=== PATIENT | female | born 1940 | race Caucasian/White ===

== ENCOUNTER → 2019-05-27 10:33 | Outpatient (CLI) | payer MEDICARE, BC, SELFPAY ==
--- NOTE | ~2019-05-27 | XR_ITS ---
EXAMINATION: XR knee RT 3V DATE: 05/27/2019 11:20 INDICATION: Right knee pain. TECHNIQUE: 3 views of right knee were obtained. COMPARISON: None. FINDINGS: Bone alignment is normal. No fracture. There is moderate osteoarthritis of medial compartme nt and mild osteoarthritis of lateral and patellofemoral compartments. No knee joint effusion. IMPRESSION: 1. Moderate right knee osteoarthritis. Reviewed, dictated and finalized at location A. PAINTER
--- NOTE | ~2019-05-27 | XR_ITS ---
XR hip RT min 3V w AP pelvis 05/27/2019 11:21 Indication: Right hip pain Procedure: AP pelvis and 3 views right hip Comparison: No prior studies for comparison. Findings: No fracture, subluxation or dislocation. Pelvic rings are intact. Mild osteoarthritis of th e hips. Sacral foramen are symmetric. Mild osteitis pubis. There is lower lumbar spondylosis. Impression: 1: Mild osteoarthritis of the hips. Reviewed, dictated and finalized at location B. NUFACTURING TECHNICIAN Impression: 1: Mild osteoarthritis of the hips.
== END ==
PROVIDERS: Visit Provider Family Medicine
DX: M16.0 Bilateral primary osteoarthritis of hip (principal); M17.11 Unilateral primary osteoarthritis, right knee
CPT/HCPCS: 73502; 73562

== ENCOUNTER 2020-07-16 13:13 | Outpatient (CLI) | payer MEDICARE, SELFPAY ==
--- NOTE | ~2020-07-16 | MR_ITS ---
EXAMINATION: MR brain/brain stem wo con DATE: 07/16/2020 14:14 INDICATION: Altered mental status, unspecified. TECHNIQUE: Magnetic resonance imaging (MRI) of the brain and brainstem was performed without intraven ous contrast. Sequences included sagittal and axial T1-weighted FSE, axial diffusion-weighted FS EPI, axial T2*-weighted GRE, axial T2-weighted FLAIR Propeller, and axial T2-weighted Propeller. Apparent diffusion coefficient (ADC) maps were created. COMPARISON: None. FINDINGS: There are scattered areas of nonspecific increased T2-weighted signal intensity in the cere bral white matter, which is within normal limits for the patient's age. There is no intracranial hemo rrhage, acute infarction, or abnormal intracranial mass lesion. The ventricles are normal in size. Th ere is mild mucosal thickening in the ethmoid sinuses. There are likely changes of ocular lens replac ement surgeries. The mastoid air cells are normal. IMPRESSION: 1. Normal brain. Reviewed, dictated and finalized at location A. TRICIAN SUPERVISOR SUBSTATION IMPRESSION: 1. Normal brain.
--- NOTE | ~2020-07-16 | US_ITS ---
EXAMINATION: US carotid duplex BI DATE: 07/16/2020 14:37 INDICATION: Occlusion and stenosis of bilateral carotid arteries. TECHNIQUE: Grayscale, color Doppler, and pulsed Doppler images of the cervical carotid arteries were obtained. The degree of vessel stenosis is placed in one of the following categories: normal, <50%, 5 0-69%, >=70% but less than near-occlusion, near-occlusion, or total occlusion. Note that percent sten osis relative to normal distal artery lumen diameter is indirectly measured from velocity measurement s as described by Stuart, et al. Radiology 2003; 229:340-346. COMPARISON: None. FINDINGS: RIGHT: The right common carotid artery (CCA) peak systolic velocity (PSV) is 58 cm/s. The right internal car otid artery (ICA) PSV is 97 cm/s. The right ICA end-diastolic velocity (EDV) is 23 cm/s. The right IC A/CCA PSV ratio is 1.7. Grayscale and color Doppler images yield an estimate of <50% diameter reducti on from plaque in the ICA. There is antegrade flow in the right vertebral artery. LEFT: The left CCA PSV is 61 cm/s. The left ICA PSV is 85 cm/s. The left ICA EDV is 27 cm/s. The left ICA/C CA PSV ratio is 1.4. Grayscale and color Doppler images yield an estimate of <50% diameter reduction from plaque in the ICA. There is antegrade flow in the left vertebral artery. IMPRESSION: 1. <50% stenosis in the right internal carotid artery. 2. <50% stenosis in the left internal carotid artery. Reviewed, dictated and finalized at location A. ER OPERATOR
== END 2020-07-16 13:14 | disposition home or self-care (01) ==
LOC: ANHIMG 13:27
PROVIDERS: PCP Family Medicine; Visit Provider Family Medicine
DX: I65.23 Occlusion and stenosis of bilateral carotid arteries (principal); R41.82 Altered mental status, unspecified
CPT/HCPCS: 70551; 93880

== ENCOUNTER 2021-07-25 15:48 | Outpatient (CLI) | payer MEDICARE, SELFPAY ==
--- NOTE | ~2021-07-25 | CT_ITS ---
EXAMINATION: CT abdomen pelvis w con DATE: 07/25/2021 16:35 INDICATION: Diverticulitis. Abdominal pain. TECHNIQUE: Computed tomography (CT) of the abdomen and pelvis was performed with 100 cc Omnipaque 350 intravenous contrast. The dose-length product was 1145.12 mGy-cm. Automated exposure control and ite rative reconstruction technique were employed. COMPARISON: None. FINDINGS: There are peripheral interstitial changes with patchy groundglass opacities in the lung bas es. There is interlobular septal thickening, consistent with chronic interstitial lung disease. Heart size normal. No significant pleural or pericardial effusion. There is mild atherosclerosis. No evide nce for aortic aneurysm. No lymphadenopathy. There is a stone in the left renal pelvis measuring 1.7 x 1.2 cm with mild hydronephrosis. There is n onobstructing right nephrolithiasis with a right extrarenal pelvis. Small fat-containing umbilical he rnia. Nonobstructive bowel gas pattern. Fatty infiltration of the liver. There are calcified granulomas of the spleen. The pancreas, adrenal glands are unremarkable. No free air or free fluid. The bladder is decompressed. Gallbladder is prese nt. Severe lumbar spondylosis. There is right renal artery stenosis. IMPRESSION: 1. Partially obstructing stone in the left renal pelvis measuring 1.7 cm maximum dimension. Mild hydr onephrosis. 2: Nonobstructing right nephrolithiasis. 3: Chronic interstitial lung disease. Reviewed, dictated and finalized at location B. IMPRESSION: 1. Partially obstructing stone in the left renal pelvis measuring 1.7 cm maximu m dimension. Mild hydronephrosis. 2: Nonobstructing right nephrolithiasis. 3: Chronic interstitial lung disease.
[2021-07-25 16:23] LABS: Estimated Glomerular Filt Rate 53
== END 2021-07-25 15:49 | disposition home or self-care (01) ==
PROVIDERS: PCP Family Medicine; Visit Provider Family Medicine
DX: R10.9 Unspecified abdominal pain (principal); N20.0 Calculus of kidney; N13.30 Unspecified hydronephrosis; J84.9 Interstitial pulmonary disease, unspecified
CPT/HCPCS: 74177; Q9967

== ENCOUNTER 2021-08-11 10:00 | Outpatient (CLI) | payer MEDICARE, SELFPAY ==
--- NOTE | 2021-08-11 10:08 | ECG_ITS ---
Measurements Intervals [place] Rate: 71 P: 44 DE: 178 QRS: 24 QRSD: 93 T: 28 QT: 368 QTc: 401 Interpretive Statements SINUS RHYTHM NORMAL ECG NO PREVIOUS ECG AVAILABLE FOR COMPARISON Electronically Signed On 08-11-2021 15:46:44 CDT by Vinh Lopez M.D.
[2021-08-11 10:48] LABS: Anion Gap 4 mmol/L (8-16); Blood Urea Nitrogen 17 mg/dL (7-17); Calcium 9.2 mg/dL (8.4-10.2); Carbon Dioxide 33 mmol/L (22-30); Chloride 101 mmol/L (98-107); Estimated Glomerular Filt Rate > 60; Glucose 109 mg/dL (65-110); Potassium 3.3 mmol/L (3.4-5.0); Sodium 138 mmol/L (137-145)
[2021-08-11 11:06] LABS: Prothrombin Time 12.9 Seconds (11.1-14.7)
[2021-08-11 11:07] LABS: Partial Thromboplastin Time 35.1 SECONDS (22.3-36.8)
== END 2021-08-11 10:01 | disposition home or self-care (01) ==
LOC: ANHSURGERY 10:04
PROVIDERS: Anesthesiology; PCP Family Medicine; Visit Provider Urology
DX: Z01.818 Encounter for other preprocedural examination (principal); I10 Essential (primary) hypertension; N20.0 Calculus of kidney
CPT/HCPCS: 36415; 80048; 85610; 85730; 87086; 87088; 93005

== ENCOUNTER → 2021-08-16 00:24 | Outpatient (CLI) | payer MEDICARE, SELFPAY ==
[2021-08-16 12:04] LABS: SARS-CoV-2 RNA PCR Negative
== END ==
PROVIDERS: PCP Family Medicine; Visit Provider Urology
DX: Z01.812 Encounter for preprocedural laboratory examination (principal); Z20.822 Contact with and (suspected) exposure to COVID-19
CPT/HCPCS: C9803; U0003; U0005

== ENCOUNTER 2021-08-19 01:15 | Day surgery (SDC) | payer MEDICARE, SELFPAY ==
--- NOTE | 2021-08-05 13:32 | PC.NURSE ---
Report to the Outpatient Waiting Room, entrance under the green pavilion located off [facility], at time __0600 on date 08/19/21 . OR Time: . - You and your visitor will be asked a series of questions to screen for COVID 19 for your protection. - A mask is required within the hospital. Preoperative COVID Testing Requirements: No COVID Test needed if: (proof is required; if not received patient will have Rapid Test prior to entry) - Patient has received COVID Vaccine at least 14 days prior to procedure date or - Patient has positive COVID test result within last 90 days of surgery date. COVID TESTING 08/16/21 @ 0915 COVID Test needed if above criteria is not met If not COVID vaccinated a COVID test must be conducted within 72 hours of surgery and patient is asked to isolate self from time of testing until procedure. You will go to the [facility] for your COVID testing. The [facility] is located at the corner of [address] [facility]. You will only be called if COVID results are positive and your surgeon may reschedule your elective surgery date. Patients may have clear liquids (water, carbonated beverages, clear teas, apple juice) until 3 hours prior to surgery with a maximum of 20 ounces. - No food from midnight until time of surgery - Infants may have breast milk until 4 hours before surgery, formula 6 hours prior to surgery. - Children will be allowed to drink immediately following surgery. If applicable, please bring a bottle or sippy cup to assist with drinking. Juice, water, soda, and popsicles are readily available. For infants on formula, please bring formula the day of surgery. Pacifiers are allowed. Take the following medications with a SIP of water the morning of surgery: ___GABAPENTIN,LEVOTHYROXINE Medications to discontinue per physician ____ASPIRIN PER DR KYLE Date to take last dose Please no make-up, nail lithuanian, hairspray, perfume, deodorant, or body powder the day of surgery. No jewelry (including any body piercings) or valuables the day of surgery, leave them at home. Please take a shower or bath the night before, or the morning of, surgery with an antibacterial soap. Wear comfortable, loose fitting clothing. Children are encouraged to wear pajamas. - Jewelry must be removed prior to entering the operating room. Rings and piercings that are not removed may be cut off. - The hospital will not accept responsibility for valuables. - Please leave all valuables, including medications, at home the day of surgery. If you are going home after surgery, a licensed mechanic driver must drive you home. - NO public transportation without another adult. - We recommend that an adult stay with you for 24 hours following discharge. - We also recommend that you do not drive, make important decision, drink alcoholic beverages, or take any drugs that were not prescribed by your health care provider for at least 24 hours after your discharge time. For Pediatric surgeries, we recommend two adults accompany the child home (only one inside the building at this time). One visitor will be allowed to accompany the patient into the hospital. Patients visitor will be instructed to remain with patient at all times or leave the building. We will allow the visitor to come back to the postoperative area when patient is ready. Follow any additional instructions given to you from your surgeon. Telephone instructions given to __PT'S STEP DAUGHTER TERRANCE and asked if any additional questions and then verbalized understanding. Patient advised to call surgeon office or pre surgery nurse liaison [phone] if any additional questions.
[2021-08-05 13:37] VITALS: BMI 45.3
[2021-08-19] VITALS (8 sets, daily range): BP systolic 103–172; BP diastolic 63–89; PULSE 64–84; RESP 12–16; TEMP 36.1–36.5; O2SAT 92–100; BMI 38.5
--- NOTE | ~2021-08-19 | XR_ITS ---
EXAMINATION: XR abdomen/kub 1V DATE: 08/19/2021 06:12 INDICATION: Kidney stone. TECHNIQUE: A supine view of the abdomen on 2 radiographs was obtained. COMPARISON: CT abdomen and pelvis 07/25/2021 FINDINGS: There are no dilated loops of bowel. There are phleboliths in the pelvis. There is a 17 mm stone in left renal pelvis. IMPRESSION: 1. 17 mm stone in left renal pelvis. Reviewed, dictated and finalized at location A.
--- NOTE | 2021-08-19 06:47 | WPDHPUPDATE1 ---
History and Physical Update Update Date/Time: 08/19/21 06:47 History and Physical has been reviewed, including an updated exam of the patient. There are NO changes in the patient's condition. Risks, benefits, and alternatives have been discussed and questions answered. Patient agrees to proceed with procedure.
--- NOTE | 2021-08-19 07:08 | WPDANESEPPF ---
Anes - Initial Pre Proc Eval Procedure: Operation Date: 08/19/21 07:30 Proposed Procedures p Left Extracorporeal Shock Wave Lithotripsy - Kenyon Ni MD s Cystoscopy with Left Stent Placement - Kenyon Ni MD Date/Time: 08/19/21 07:08 Surgeon: Kenyon Ni MD Pre Op Diagnosis: Left Renal Kidney Stones Patient Data Age: 80 Gender: F Height: 1.55 m Weight: 92.5 kg Last Vital Signs Temp 36.5 C 08/19/21 06:38 Pulse 64 08/19/21 06:38 Resp 14 08/19/21 06:38 BP 149/63 H 08/19/21 06:38 Pulse Ox 99 08/19/21 06:38 Allergies Allergy/AdvReac Type Severity Reaction Status Date / Time Sulfa (Sulfonamide AdvReac Mild hives Verified 08/19/21 07:09 Antibiotics) Home Medications Medication Instructions Recorded Confirmed Type aspirin 81 mg tablet,delayed 81 mg PO DAILY 03/24/19 08/05/21 History release fluticasone propionate 50 1 spray NASAL BID ml 05/26/19 08/05/21 History mcg/actuation nasal spray,suspension gabapentin 100 mg capsule 200 mg PO TID #180 cap 09/01/20 08/05/21 Rx atorvastatin 20 mg tablet 20 mg PO DAILY #30 tablet 10/06/20 08/05/21 Rx furosemide 20 mg tablet 20 mg PO QAM PRN #30 tablet 11/04/20 08/05/21 Rx hydrochlorothiazide 12.5 mg capsule 12.5 mg PO DAILY #30 cap 11/04/20 08/05/21 Rx omeprazole 20 mg capsule,delayed 20 mg PO DAILY #30 cap 11/04/20 08/05/21 Rx release potassium chloride 10 mEq 10 meq PO DAILY PRN #30 cap 11/22/20 08/05/21 Rx capsule,extended release lisinopril 20 mg tablet 20 mg PO DAILY #30 tablet 12/07/20 08/05/21 Rx tramadol 50 mg tablet 50 mg PO Q6H PRN #60 tablet 05/09/21 08/05/21 Rx levothyroxine 75 mcg tablet 75 mcg PO DAILY #90 tablet 06/08/21 08/05/21 Rx Patient hx anesthesia problems: none Family hx anesthesia problems: none Results Review: All pre-operative results and documents have been reviewed as part of the pre-operative evaluation. [facility] Past Medical History Medical History (Updated 07/26/21 @ 12:57 by Cisco Guzman MD) Abdominal pain (~07/20/21) CT of the abdomen and pelvis on 07/25/2021 revealed fatty liver with chronic interstitial lung changes and stone in the left renal pelvis with hydronephrosis and severe lumbar spondylosis. Renal artery stenosis on the right noted. Abnormal fasting glucose Acute non-recurrent maxillary sinusitis Altered mental status MRI of the brain and carotid Doppler study negative on 07/16/2020 Anemia At high risk for falls Body mass index (BMI) 40.0-44.9, adult (01/27/19) Chronic bilateral low back pain with right-sided sciatica Chronic kidney disease (CKD) stage G3b/A1, moderately decreased glomerular filtration rate (GFR) between 30-44 mL/min/1.73 square meter and albuminuria creatinine ratio less than 30 mg/g Chronic nonallergic rhinitis Chronic pain of right knee Chronic right hip pain Confusion Edema, peripheral Essential (primary) hypertension Gastroenteritis GERD (gastroesophageal reflux disease) Hypothyroidism, unspecified Hypothyroidism, unspecified Mixed hyperlipidemia Mixed irritable bowel syndrome Renal calculus, bilateral partially obstructing 1.7 cm stone in the left renal pelvis with mild hydronephrosis on CT 07/25/2021 Right renal artery stenosis (~07/25/21) renal artery stenosis on the right noted on CT of the abdomen and pelvis on 07/25/2021 UTI (urinary tract infection) Social History Social History (Updated 06/06/21 @ 08:28 by Phuong Mann MA) Smoking status: Never smoker Alcohol intake: never Substance use: never Substance use type: does not use Living arrangements: alone Spiritual care concerns: No Anes - Eval Final PreProcedure Day of Procedure 08/19/21 07:08 Patient weight: obese Heart: regular rate and rhythm Lungs: clear to auscultation and normal air movement Airway: Mallampati scale class II Neurological: alert and oriented Last oral intake: >/= 8 hours ASA classification: III Emergent: no Anesthetic
[2021-08-19] MEDS: ceFAZolin 2 GM/D5W 50 ML 2 GM/50 ML BAG IVPB (07:24)
[2021-08-19] MEDS: LACTATED RINGERS 1,000 ML 30 ML IV CONT (07:30)
--- NOTE | 2021-08-19 08:04 | P.OP_ITS ---
Procedure Note - Detailed Date of Procedure 08/19/21 Pre-op Diagnosis Left Renal Kidney Stones Post-op Diagnosis Same Procedure Performed Cystoscopy, left ureteral stent placement and left ESWL Surgeon Kenyon Ni MD Anesthesia General Description of Procedure The patient was brought to the operative suite where she was placed in the frog- legged position on the Dornier lithotripter table. Flexible cystoscopy was undertaken with a 16F flexible cystoscopy. Her urethra and bladder neck were endoscopically normal. The bladder mucosa was normal and there was a single, orthotopic ureteral orifice bilaterally. A 0.035 glidewire was advanced into the left renal pelvis under fluoroscopy. A 4.8F J-J ureteral stent was positioned with the proximal coil in the renal pelvis and the distal coil in the bladder. The patient was then repositioned in the supine position and the focal point of the lithotriptor was placed at a 2cm left renal calculus. A total of 2500 shocks were delivered at a power setting of 7. There appeared to be good fragmentation of the stone. The patient tolerated the procedure well and was taken to the recovery room in good condition. Drains Yes Packing No Pathology None sent Condition Stable Disposition PACU
[2021-08-19] MEDS: fentaNYL CITRATE INJ (*CRX) 100 MCG/2 ML VIAL 25 MCG IV PUSH ×4 (09:06→09:24)
[2021-08-19] MEDS: oxyCODONE HCL (*CRX) 5 MG TAB IR PO (10:04)
== END 2021-08-19 10:52 | disposition home or self-care (01) ==
PROVIDERS: PCP Family Medicine; Visit Provider Urology
PROC: (CPT 50590; principal; 2021-08-19 07:30)
PROC: (CPT 52352; 2021-08-19 07:30)
DX: N20.0 Calculus of kidney (principal); I12.9 Hypertensive chronic kidney disease with stage 1 through stage 4 chronic kidney disease, or unspecified chronic kidney disease; N18.32 Chronic kidney disease, stage 3b; D64.9 Anemia, unspecified; K21.9 Gastro-esophageal reflux disease without esophagitis; E03.9 Hypothyroidism, unspecified; E78.2 Mixed hyperlipidemia; K58.2 Mixed irritable bowel syndrome; E66.9 Obesity, unspecified; Z68.38 Body mass index [BMI] 38.0-38.9, adult
CPT/HCPCS: 52332; 50590; 74018; A9270; C1769; C2617; J0690; J1100; J2405; J2704; J3010; J7030; J7120

== ENCOUNTER → 2021-08-29 01:30 | Outpatient (CLI) | payer MEDICARE, SELFPAY ==
[2021-08-29 12:11] LABS: SARS-CoV-2 RNA PCR Negative
== END ==
PROVIDERS: PCP Family Medicine; Visit Provider Internal Medicine Gastroenterology
DX: Z01.812 Encounter for preprocedural laboratory examination (principal); Z20.822 Contact with and (suspected) exposure to COVID-19
CPT/HCPCS: C9803; U0003; U0005

== ENCOUNTER 2021-09-01 00:05 | Day surgery (SDC) | payer MEDICARE, SELFPAY ==
[2021-08-19 09:15] VITALS: BMI 45.3
--- NOTE | 2021-08-31 11:16 | WPDANESEPPF ---
Anes - Initial Pre Proc Eval Procedure: Operation Date: 09/01/21 08:30 Proposed Procedures p Colonoscopy - William Pennington MD Date/Time: 08/31/21 11:16 Surgeon: William Pennington MD Pre Op Diagnosis: colitis Patient Data Age: 81 Gender: F Height: 1.55 m Weight: 108.9 kg Allergies Allergy/AdvReac Type Severity Reaction Status Date / Time Sulfa (Sulfonamide AdvReac Mild hives Verified 09/01/21 07:33 Antibiotics) Home Medications Medication Instructions Recorded Confirmed Type aspirin 81 mg tablet,delayed 81 mg PO DAILY 03/24/19 08/19/21 History release fluticasone propionate 50 1 spray NASAL BID ml 05/26/19 08/19/21 History mcg/actuation nasal spray,suspension gabapentin 100 mg capsule 200 mg PO TID #180 cap 09/01/20 08/19/21 Rx atorvastatin 20 mg tablet 20 mg PO DAILY #30 tablet 10/06/20 08/19/21 Rx furosemide 20 mg tablet 20 mg PO QAM PRN #30 tablet 11/04/20 08/19/21 Rx hydrochlorothiazide 12.5 mg capsule 12.5 mg PO DAILY #30 cap 11/04/20 08/19/21 Rx omeprazole 20 mg capsule,delayed 20 mg PO DAILY #30 cap 11/04/20 08/19/21 Rx release potassium chloride 10 mEq 10 meq PO DAILY PRN #30 cap 11/22/20 08/19/21 Rx capsule,extended release lisinopril 20 mg tablet 20 mg PO DAILY #30 tablet 12/07/20 08/19/21 Rx duloxetine 60 mg PO DAILY 08/19/21 08/19/21 History hyoscyamine sulfate [Levsin/SL] 0.125 mg SUBLINGUAL QID PRN 08/19/21 08/19/21 History levothyroxine 50 mcg PO DAILY 08/19/21 08/19/21 History meloxicam 15 mg PO DAILY PRN 08/19/21 08/19/21 History tramadol 50 mg PO Q6H PRN 08/30/21 08/30/21 History Patient hx anesthesia problems: none Family hx anesthesia problems: none Results Review: All pre-operative results and documents have been reviewed as part of the pre-operative evaluation. [facility] Past Medical History Medical History Abdominal pain (~07/20/21) CT of the abdomen and pelvis on 07/25/2021 revealed fatty liver with chronic interstitial lung changes and stone in the left renal pelvis with hydronephrosis and severe lumbar spondylosis. Renal artery stenosis on the right noted. Abnormal fasting glucose Acute non-recurrent maxillary sinusitis Altered mental status MRI of the brain and carotid Doppler study negative on 07/16/2020 Anemia At high risk for falls Body mass index (BMI) 40.0-44.9, adult (01/27/19) Chronic bilateral low back pain with right-sided sciatica Chronic kidney disease (CKD) stage G3b/A1, moderately decreased glomerular filtration rate (GFR) between 30-44 mL/min/1.73 square meter and albuminuria creatinine ratio less than 30 mg/g Chronic nonallergic rhinitis Chronic pain of right knee Chronic right hip pain Confusion Edema, peripheral Essential (primary) hypertension Gastroenteritis GERD (gastroesophageal reflux disease) Hypothyroidism, unspecified Hypothyroidism, unspecified Mixed hyperlipidemia Mixed irritable bowel syndrome Renal calculus, bilateral partially obstructing 1.7 cm stone in the left renal pelvis with mild hydronephrosis on CT 07/25/2021 Right renal artery stenosis (~07/25/21) renal artery stenosis on the right noted on CT of the abdomen and pelvis on 07/25/2021 UTI (urinary tract infection) Surgical History Surgical History History of hysterectomy History of right-sided carotid endarterectomy Social History Social History Smoking status: Never smoker Alcohol intake: never Substance use: never Substance use type: does not use Living arrangements: alone Gender identity (if verbalized by the patient): Female Sexual Orientation (if Verbalized by the Patient): Straight or Heterosexual Spiritual care concerns: No Anes - Eval Final PreProcedure Day of Procedure 08/31/21 11:16 Patient weight: morbidly obese Heart: regular rate and rhythm Lungs: clear to ausculta
--- NOTE | 2021-09-01 07:22 | WPDGICN ---
Assessment and Plan Assessment and plan (1) Change in bowel habits: Code(s): R19.4 - Change in bowel habit Status: Acute Assessment and Plan: Colonoscopy with possible biopsy or polypectomy or cautery or injection of substances. (2) Abdominal pain: Onset Date: ~07/20/21 Code(s): R10.9 - Unspecified abdominal pain Status: Acute GI Consult Note Consult date/time: 09/01/21 07:22 HPI: Chica Cooper is a 81 year old female referred for investigation of change in bowel habits and abdominal pain. for the past few years she has had problems with constipation. now she is having alternating loose and hard stools for no apparent reason. She has not been using laxatives. She then developed abdominal pain last month, was thought to have possible diverticulitis and was treated with Cipro and Flagyl. Her symptoms however have persisted. A CT scan of the abdomen was positive for showing a kidney stone In the left renal pelvis with some hydronephrosis. and fatty liver. Review of Systems Review of Systems: All systems reviewed & are unremarkable except as noted in HPI and below PMFSH Past Medical History Medical History Abdominal pain (~07/20/21) CT of the abdomen and pelvis on 07/25/2021 revealed fatty liver with chronic interstitial lung changes and stone in the left renal pelvis with hydronephrosis and severe lumbar spondylosis. Renal artery stenosis on the right noted. Abnormal fasting glucose Acute non-recurrent maxillary sinusitis Altered mental status MRI of the brain and carotid Doppler study negative on 07/16/2020 Anemia At high risk for falls Body mass index (BMI) 40.0-44.9, adult (01/27/19) Chronic bilateral low back pain with right-sided sciatica Chronic kidney disease (CKD) stage G3b/A1, moderately decreased glomerular filtration rate (GFR) between 30-44 mL/min/1.73 square meter and albuminuria creatinine ratio less than 30 mg/g Chronic nonallergic rhinitis Chronic pain of right knee Chronic right hip pain Confusion Edema, peripheral Essential (primary) hypertension Gastroenteritis GERD (gastroesophageal reflux disease) Hypothyroidism, unspecified Hypothyroidism, unspecified Mixed hyperlipidemia Mixed irritable bowel syndrome Renal calculus, bilateral partially obstructing 1.7 cm stone in the left renal pelvis with mild hydronephrosis on CT 07/25/2021 Right renal artery stenosis (~07/25/21) renal artery stenosis on the right noted on CT of the abdomen and pelvis on 07/25/2021 UTI (urinary tract infection) Surgical History Surgical History History of hysterectomy History of right-sided carotid endarterectomy Social History Social History Smoking status: Never smoker Alcohol intake: never Substance use: never Substance use type: does not use Living arrangements: alone Gender identity (if verbalized by the patient): Female Sexual Orientation (if Verbalized by the Patient): Straight or Heterosexual Spiritual care concerns: No Meds Home Medications and Allergies Home Medications Medication Instructions Recorded Confirmed Type aspirin 81 mg tablet,delayed 81 mg PO DAILY 03/24/19 08/19/21 History release fluticasone propionate 50 1 spray NASAL BID ml 05/26/19 08/19/21 History mcg/actuation nasal spray,suspension gabapentin 100 mg capsule 200 mg PO TID #180 cap 09/01/20 08/19/21 Rx atorvastatin 20 mg tablet 20 mg PO DAILY #30 tablet 10/06/20 08/19/21 Rx furosemide 20 mg tablet 20 mg PO QAM PRN #30 tablet 11/04/20 08/19/21 Rx hydrochlorothiazide 12.5 mg capsule 12.5 mg PO DAILY #30 cap 11/04/20 08/19/21 Rx omeprazole 20 mg capsule,delayed 20 mg PO DAILY #30 cap 11/04/20 08/19/21 Rx release potassium chloride 10 mEq 10 meq PO DAILY PRN #30 cap 11/22/20 08/19/21 Rx capsule,extended
[2021-09-01 07:34] VITALS: BP 169/73; PULSE 83; RESP 17; TEMP 36.4; O2SAT 96; BMI 37.9
[2021-09-01] MEDS: LACTATED RINGERS 1,000 ML 150 ML IV CONT (07:47)
[2021-09-01 08:34] VITALS: BP 147/84; PULSE 74; RESP 20; O2SAT 97
[2021-09-01 08:44] VITALS: BP 154/86; PULSE 74; RESP 20; O2SAT 98
[2021-09-01 08:54] VITALS: BP 154/91; PULSE 79; RESP 16; O2SAT 100
== END 2021-09-01 09:21 | disposition home or self-care (01) ==
PROVIDERS: PCP Family Medicine; Visit Provider Internal Medicine Gastroenterology
PROC: 0DJD8ZZ Inspection of Lower Intestinal Tract, Via Natural or Artificial Opening Endoscopic (ICD-10-PCS; CPT 45378; principal; 2021-09-01 08:30)
DX: R19.4 Change in bowel habit (principal); D12.3 Benign neoplasm of transverse colon; I12.9 Hypertensive chronic kidney disease with stage 1 through stage 4 chronic kidney disease, or unspecified chronic kidney disease; N18.32 Chronic kidney disease, stage 3b; E03.9 Hypothyroidism, unspecified; E78.2 Mixed hyperlipidemia; K21.9 Gastro-esophageal reflux disease without esophagitis; K58.2 Mixed irritable bowel syndrome; Z79.82 Long term (current) use of aspirin; E66.01 Morbid (severe) obesity due to excess calories; Z68.37 Body mass index [BMI] 37.0-37.9, adult
CPT/HCPCS: 45385; 45381; 45380; 88305; J2704; J7120

== ENCOUNTER 2021-09-08 09:14 | Outpatient (CLI) | payer MEDICARE, SELFPAY ==
--- NOTE | ~2021-09-08 | XR_ITS ---
EXAMINATION: XR abdomen/kub 1V INDICATION: Left-sided kidney stone TECHNIQUE: Supine views of the abdomen were obtained on 2 radiographs. COMPARISON: 08/19/2021 FINDINGS: There has been interval fragmentation of the previously described left kidney stone. Innume rable small stone fragments are seen in the mid and lower left kidney. A left internal ureteral stent is in expected position. There are multiple stone fragments adjacent to the proximal aspect of the s tent. Surgical clips are noted in the right upper quadrant. There are phleboliths of the pelvis. The bowel gas pattern is normal. There are minimal airspace opacities of the visualized left lung base. IMPRESSION: 1. Interval fragmentation of the previously described left kidney stone, consistent with lithotripsy. Multiple stone fragments persist in the kidney and along a left internal ureteral stent which is in expected position. Reviewed, dictated and finalized at location F. IMPRESSION: 1. Interval fragmentation of the previously described left kidney stone, consis tent with lithotripsy. Multiple stone fragments persist in the kidney and along a left internal ureteral stent which is in expected position.
== END 2021-09-08 09:15 | disposition home or self-care (01) ==
PROVIDERS: PCP Family Medicine; Visit Provider Urology
DX: N20.0 Calculus of kidney (principal)
CPT/HCPCS: 74018

== ENCOUNTER 2021-09-23 11:29 | Outpatient (CLI) | payer MEDICARE, SELFPAY ==
--- NOTE | ~2021-09-23 | XR_ITS ---
EXAMINATION: XR abdomen/kub 1V DATE: 09/23/2021 11:58 INDICATION: Kidney stones. TECHNIQUE: A supine view of the abdomen on 2 radiographs was obtained. COMPARISON: CT abdomen and pelvis 07/25/2021, abdomen radiograph 09/08/2021 FINDINGS: There are no dilated loops of bowel. Two clips are noted in right abdomen. There is a left internal ureteral stent in expected position. There are innumerable stones in left kidney and proxima l left ureter measuring up to at least 4 mm. There are phleboliths in the pelvis. IMPRESSION: 1. Innumerable stones in left kidney and proximal left ureter with left internal ureteral stent in ex pected position. Reviewed, dictated and finalized at location A. IMPRESSION: 1. Innumerable stones in left kidney and proximal left ureter with left interna l ureteral stent in expected position.
== END 2021-09-23 11:30 | disposition home or self-care (01) ==
PROVIDERS: PCP Family Medicine; Visit Provider Urology
DX: N20.0 Calculus of kidney (principal)
CPT/HCPCS: 74018

== ENCOUNTER 2021-10-06 10:07 | Outpatient (CLI) | payer MEDICARE, SELFPAY ==
--- NOTE | ~2021-10-06 | XR_ITS ---
EXAMINATION: XR abdomen/kub 1V DATE: 10/06/2021 10:33 INDICATION: Calculus of kidney. TECHNIQUE: A supine view of the abdomen was obtained. COMPARISON: Abdomen radiographs 09/23/2021 FINDINGS: There are no dilated loops of bowel. Surgical clips overlie right abdomen. There are phlebo liths in the pelvis. There is a left internal ureteral stent in expected position. There are innumera ble stones in left kidney and proximal left ureter measuring up to at least 4 mm. IMPRESSION: 1. Innumerable stones in left kidney and proximal left ureter with left internal ureteral stent in ex pected position. Reviewed, dictated and finalized at location A. IMPRESSION: 1. Innumerable stones in left kidney and proximal left ureter with left interna l ureteral stent in expected position.
== END 2021-10-06 10:08 | disposition home or self-care (01) ==
PROVIDERS: PCP Family Medicine; Visit Provider Urology
DX: N20.1 Calculus of ureter (principal)
CPT/HCPCS: 74018

== ENCOUNTER 2021-10-11 08:45 | Outpatient (CLI) | payer MEDICARE, SELFPAY ==
[2021-10-11 09:42] LABS: Prothrombin Time 13.2 Seconds (11.1-14.7)
[2021-10-11 09:43] LABS: Partial Thromboplastin Time 34.1 SECONDS (22.3-36.8)
[2021-10-11 10:13] LABS: Anion Gap 5 mmol/L (8-16); Blood Urea Nitrogen 20 mg/dL (7-17); Calcium 9.4 mg/dL (8.4-10.2); Carbon Dioxide 29 mmol/L (22-30); Chloride 105 mmol/L (98-107); Estimated Glomerular Filt Rate 60; Glucose 114 mg/dL (65-110); Potassium 4.4 mmol/L (3.4-5.0); Sodium 139 mmol/L (137-145)
== END 2021-10-11 08:46 | disposition home or self-care (01) ==
LOC: ANHSURGERY 08:50
PROVIDERS: Anesthesiology; PCP Family Medicine; Visit Provider Urology
DX: Z01.818 Encounter for other preprocedural examination (principal); N20.0 Calculus of kidney; Z51.81 Encounter for therapeutic drug level monitoring
CPT/HCPCS: 36415; 80048; 85610; 85730; 87086; 87088

== ENCOUNTER 2021-10-14 01:10 | Day surgery (SDC) | payer MEDICARE, SELFPAY ==
[2021-10-07 15:30] VITALS: BMI 37.0
--- NOTE | 2021-10-07 15:52 | PC.NURSE ---
Report to the Outpatient Waiting Room, entrance under the green pavilion located off [facility], at time __6:30AM on date __10/14/21 . OR Time: ___8:30AM . - You and your visitor will be asked a series of questions to screen for COVID 19 for your protection. - Only one visitor is allowed at this time. - The patient visitor is requested to leave or wait in car when not with patient. - A mask is required within the hospital. Patients may have clear liquids (water, carbonated beverages, clear teas, apple juice) until 3 hours prior to surgery with a maximum of 20 ounces. - No food from midnight until time of surgery - Infants may have breast milk until 4 hours before surgery, formula 6 hours prior to surgery. - Children will be allowed to drink immediately following surgery. If applicable, please bring a bottle or sippy cup to assist with drinking. Juice, water, soda, and popsicles are readily available. For infants on formula, please bring formula the day of surgery. Pacifiers are allowed. Take the following medications with a SIP of water the morning of surgery: __DULOXETINE, GABAPENTIN, LEVOTHYROXINE Medications to discontinue per physician ___HOLD ALL VITAMINS/SUPPLEMENTS AND ASPIRIN X7 DAYS PRE-OP Date to take last dose____10/07/21 Please no make-up, nail pitcairn islander, hairspray, perfume, deodorant, or body powder the day of surgery. No jewelry (including any body piercings) or valuables the day of surgery, leave them at home. Please take a shower or bath the night before, or the morning of, surgery with an antibacterial soap. Wear comfortable, loose fitting clothing. Children are encouraged to wear pajamas. - Jewelry must be removed prior to entering the operating room. Rings and piercings that are not removed may be cut off. - The hospital will not accept responsibility for valuables. - Please leave all valuables, including medications, at home the day of surgery. If you are going home after surgery, a licensed compressed air pile driver operator must drive you home. - NO public transportation without another adult. - We recommend that an adult stay with you for 24 hours following discharge. - We also recommend that you do not drive, make important decision, drink alcoholic beverages, or take any drugs that were not prescribed by your health care provider for at least 24 hours after your discharge time. For Pediatric surgeries, we recommend two adults accompany the child home (only one inside the building at this time). Follow any additional instructions given to you from your surgeon. If you or anyone in your household have experienced Covid symptoms in the past week, please notify your surgeon or the nurse liaison at the phone number below for possible testing. Telephone instructions given to _PT'S DAUGHTER-TRERANCE___and asked if any additional questions and then verbalized understanding. Patient advised to call surgeon office or pre surgery nurse liaison [phone] if any additional questions.
--- NOTE | 2021-10-11 07:39 | PM.HPGS ---
History of Present Illness History of Present Illness Consent: Risks, benefits, and alternatives have been discussed and questions answered. Patient agrees to proceed with procedure. Chief complaint: Lt Renal Stone Narrative: Chica Cooper is a 81 year old female who is status post ESWL to a large left renal calculus in August 2021. Follow-up imaging shows grade fragmentation but significant stone fragment residual burden in the left renal pelvis and along the left proximal ureter. After discussion of options and several follow-up KUB is we have elected to proceed with repeat left ESWL. She is aware of the risk including, limited to, adverse cardiopulmonary events, renal injury with perinephric hematoma, hematuria and persistent stone fragments. Review of Systems Cardiovascular: Cardiovascular: Denies chest pain, Denies lightheadedness, Denies palpitations and Denies dyspnea Respiratory: Respiratory: Denies dyspnea Gastrointestinal: Gastrointestinal: Denies diarrhea, Denies nausea and Denies vomiting Genitourinary: Genitourinary: Denies hematuria and Denies dysuria Endocrine: Endocrine: Denies palpitations PMFSH Past Medical History Medical History Abdominal pain (~07/20/21) CT of the abdomen and pelvis on 07/25/2021 revealed fatty liver with chronic interstitial lung changes and stone in the left renal pelvis with hydronephrosis and severe lumbar spondylosis. Renal artery stenosis on the right noted. Abnormal fasting glucose Acute non-recurrent maxillary sinusitis Altered mental status MRI of the brain and carotid Doppler study negative on 07/16/2020 Anemia At high risk for falls Body mass index (BMI) 40.0-44.9, adult (01/27/19) Chronic bilateral low back pain with right-sided sciatica Chronic kidney disease (CKD) stage G3b/A1, moderately decreased glomerular filtration rate (GFR) between 30-44 mL/min/1.73 square meter and albuminuria creatinine ratio less than 30 mg/g Chronic nonallergic rhinitis Chronic pain of right knee Chronic right hip pain Confusion Edema, peripheral Essential (primary) hypertension Gastroenteritis GERD (gastroesophageal reflux disease) Hypothyroidism, unspecified Hypothyroidism, unspecified Mixed hyperlipidemia Mixed irritable bowel syndrome Polyp of colon (09/01/21) 3 polyps of the transverse colon 09/01/21 Renal calculus, bilateral partially obstructing 1.7 cm stone in the left renal pelvis with mild hydronephrosis on CT 07/25/2021 Right renal artery stenosis (~07/25/21) renal artery stenosis on the right noted on CT of the abdomen and pelvis on 07/25/2021 UTI (urinary tract infection) Surgical History Surgical History History of hysterectomy History of right-sided carotid endarterectomy Social History Social History Smoking status: Never smoker Alcohol intake: never Substance use: never Substance use type: does not use Gender identity (if verbalized by the patient): Female Sexual Orientation (if Verbalized by the Patient): Straight or Heterosexual Spiritual care concerns: No Meds Home Medications and Allergies Home Medications Medication Instructions Recorded Confirmed Type aspirin 81 mg tablet,delayed 81 mg PO DAILY 03/24/19 10/07/21 History release (Adult Aspirin Regimen) fluticasone propionate 50 1 spray intranasal BID 05/26/19 10/07/21 History mcg/actuation nasal spray,suspension (Flonase Allergy Relief) atorvastatin 20 mg tablet 20 mg PO DAILY #30 tabs 10/06/20 10/07/21 Rx furosemide 20 mg tablet 20 mg PO QAM PRN edema #30 tabs 11/04/20 10/07/21 Rx omeprazole 20 mg capsule,delayed 20 mg PO DAILY #30 caps 11/04/20 10/07/21 Rx release potassium chloride 10 mEq 10 meq PO DAILY PRN furosemide 11/22/20 10/07/21 Rx capsule,extended release #30 caps hyoscyamine sulfate
[2021-10-14] VITALS (10 sets, daily range): BP systolic 138–176; BP diastolic 69–93; PULSE 73–89; RESP 12–20; TEMP 36.4–36.7; O2SAT 96–100
--- NOTE | ~2021-10-14 | XR_ITS ---
XR abdomen/kub 1V 10/14/2021 06:52 Indication: Preop ESWL Procedure: KUB Comparison: Comparison to multiple prior studies sequentially, with oldest reviewed study dated 12/2021. Findings: Bowel gas pattern is nonobstructive. There is a left internal ureteral stent in expected lo cation. There are multiple left renal and proximal ureteral stones. Moderate-severe lumbar spondylosi s with levoscoliosis. Impression: 1: Left renal and proximal ureteral stones with left internal ureteral stent in expected position. Reviewed, dictated and finalized at location A. Impression: 1: Left renal and proximal ureteral stones with left internal ureteral stent in expected position.
--- NOTE | 2021-10-14 06:18 | WPDHPUPDATE1 ---
History and Physical Update Update Date/Time: 10/14/21 06:18 History and Physical has been reviewed, including an updated exam of the patient. There are NO changes in the patient's condition. Risks, benefits, and alternatives have been discussed and questions answered. Patient agrees to proceed with procedure.
[2021-10-14] MEDS: LACTATED RINGERS 1,000 ML 30 ML IV CONT (07:25)
--- NOTE | 2021-10-14 07:55 | WPDANESEPPF ---
Anes - Initial Pre Proc Eval Procedure: Operation Date: 10/14/21 08:30 Proposed Procedures p Repeat Left Extracorporeal Shock Wave Lithotripsy - Kenyon Ni MD Date/Time: 10/14/21 07:55 Surgeon: Kenyon Ni MD Pre Op Diagnosis: Lt Renal Stone Patient Data Age: 81 Gender: F Height: 1.6 m Weight: 95 kg Allergies Allergy/AdvReac Type Severity Reaction Status Date / Time Sulfa (Sulfonamide AdvReac Mild hives Verified 10/14/21 07:15 Antibiotics) Home Medications Medication Instructions Recorded Confirmed Type aspirin 81 mg tablet,delayed 81 mg PO DAILY 03/24/19 10/14/21 History release (Adult Aspirin Regimen) fluticasone propionate 50 1 spray intranasal BID 05/26/19 10/14/21 History mcg/actuation nasal spray,suspension (Flonase Allergy Relief) atorvastatin 20 mg tablet 20 mg PO DAILY #30 tabs 10/06/20 10/14/21 Rx furosemide 20 mg tablet 20 mg PO QAM PRN edema #30 tabs 11/04/20 10/14/21 Rx omeprazole 20 mg capsule,delayed 20 mg PO DAILY #30 caps 11/04/20 10/14/21 Rx release potassium chloride 10 mEq 10 meq PO DAILY PRN furosemide 11/22/20 10/14/21 Rx capsule,extended release #30 caps hyoscyamine sulfate 0.125 mg 0.125 mg sublingual QID PRN 08/19/21 10/14/21 History sublingual tablet (Levsin/SL) Abdominal Discomfort levothyroxine 50 mcg capsule 50 mcg PO QAM 08/19/21 10/14/21 History meloxicam 15 mg tablet 15 mg PO DAILY PRN Pain 08/19/21 10/14/21 History gabapentin 100 mg capsule 200 mg PO TID #180 caps 09/03/21 10/14/21 Rx duloxetine 60 mg capsule,delayed 60 mg PO QAM 10/07/21 10/14/21 History release hydrochlorothiazide 12.5 mg capsule 12.5 mg PO QAM 10/07/21 10/14/21 History lisinopril 20 mg tablet 20 mg PO QAM 10/07/21 10/14/21 History Patient hx anesthesia problems: none Family hx anesthesia problems: none Results Review: All pre-operative results and documents have been reviewed as part of the pre-operative evaluation. FORMERLY [facility] Past Medical History Medical History Abdominal pain (~07/20/21) CT of the abdomen and pelvis on 07/25/2021 revealed fatty liver with chronic interstitial lung changes and stone in the left renal pelvis with hydronephrosis and severe lumbar spondylosis. Renal artery stenosis on the right noted. Abnormal fasting glucose Acute non-recurrent maxillary sinusitis Altered mental status MRI of the brain and carotid Doppler study negative on 07/16/2020 Anemia At high risk for falls Body mass index (BMI) 40.0-44.9, adult (01/27/19) Chronic bilateral low back pain with right-sided sciatica Chronic kidney disease (CKD) stage G3b/A1, moderately decreased glomerular filtration rate (GFR) between 30-44 mL/min/1.73 square meter and albuminuria creatinine ratio less than 30 mg/g Chronic nonallergic rhinitis Chronic pain of right knee Chronic right hip pain Confusion Edema, peripheral Essential (primary) hypertension Gastroenteritis GERD (gastroesophageal reflux disease) Hypothyroidism, unspecified Hypothyroidism, unspecified Mixed hyperlipidemia Mixed irritable bowel syndrome Polyp of colon (09/01/21) 3 polyps of the transverse colon 09/01/21 Renal calculus, bilateral partially obstructing 1.7 cm stone in the left renal pelvis with mild hydronephrosis on CT 07/25/2021 Right renal artery stenosis (~07/25/21) renal artery stenosis on the right noted on CT of the abdomen and pelvis on 07/25/2021 UTI (urinary tract infection) Surgical History Surgical History History of hysterectomy History of right-sided carotid endarterectomy Social History Social History Smoking status: Never smoker Alcohol intake: never Substance use: never Substance use type: does not use Living arrangements: alone Gender identity (if verbalized by the patient): Female Sexual Orientatio
[2021-10-14] MEDS: KETOROLAC 30 MG/ML VIAL (*BKC) IV PUSH (08:23)
[2021-10-14] MEDS: ceFAZolin 2 GM/D5W 50 ML 2 GM/50 ML BAG IVPB (08:23)
--- NOTE | 2021-10-14 09:07 | W.PM.PROC2 ---
Procedure Note - Detailed Date of Procedure 10/14/21 Pre-op Diagnosis Lt Renal Stones Post-op Diagnosis Same Procedure Performed Left ESWL Surgeon Kenyon Ni MD Description of Procedure The patient was brought to the operative suite where he was placed in the supine position on the Dornier lithotripsy table. The focal point of the lithotripter was placed at a collection residual stone fragments in her left renal pelvis. A total of 2500 shocks were delivered at a power setting of 4. There appeared to be good fragmentation of the stone. The patient tolerated the procedure well and was taken to the recovery room in good condition. Drains No Packing No Pathology None sent Complications No immediate complications
[2021-10-14] MEDS: fentaNYL CITRATE INJ (*CRX) 100 MCG/2 ML VIAL 25 MCG IV PUSH (09:42)
[2021-10-14] MEDS: oxyCODONE HCL (*CRX) 5 MG TAB IR PO (10:12)
== END 2021-10-14 11:00 | disposition home or self-care (01) ==
PROVIDERS: PCP Family Medicine; Visit Provider Urology
PROC: (CPT 50590; principal; 2021-10-14 08:30)
DX: N20.0 Calculus of kidney (principal); Z79.82 Long term (current) use of aspirin; E03.9 Hypothyroidism, unspecified; M47.816 Spondylosis without myelopathy or radiculopathy, lumbar region; I12.9 Hypertensive chronic kidney disease with stage 1 through stage 4 chronic kidney disease, or unspecified chronic kidney disease; N18.30 Chronic kidney disease, stage 3 unspecified; E78.2 Mixed hyperlipidemia; K58.2 Mixed irritable bowel syndrome; E66.9 Obesity, unspecified; Z68.34 Body mass index [BMI] 34.0-34.9, adult
CPT/HCPCS: 50590; 74018; A9270; J0690; J1100; J1885; J2405; J2704; J3010; J7120

== ENCOUNTER 2021-10-27 09:31 | Outpatient (CLI) | payer MEDICARE, SELFPAY ==
--- NOTE | ~2021-10-27 | XR_ITS ---
EXAMINATION: XR abdomen/kub 1V DATE: 10/27/2021 09:47 INDICATION: Renal stone follow-up TECHNIQUE: A supine view of the abdomen on 2 radiographs was obtained. COMPARISON: KUB dated 10/14/[address] dated 07/25/2021 FINDINGS: Couple surgical clips related to colonic polyp resection along the proximal transverse colon project over the right upper quadrant. Left internal ureteral stent with loops formed in expected location of the bladder and an upper pole calyx of the left kidney. Interval decrease in the amount of calcific debris related to a prior left lithotripsy with subtle stippled pattern of calcification projecting h orizontally along the talus is an infundibulum in the lower left kidney, and the left renal pelvis an d along the stent in the proximal left ureter. No right-sided urolithiasis. Unchanged pattern of alejandra ral phleboliths in the pelvis. 1.6 cm round opacity projecting over the left abdomen peripheral to th e left kidney which could represent material either within the fecal stream or external to the patien t. No dilated loops of bowel to suggest obstruction. Mild lumbar levoscoliosis with severe spondylosi s. Coarse reticular pattern at the lateral lung bases, right greater than left consistent with chroni c interstitial lung disease. IMPRESSION: 1. Stippled pattern of numerous tiny stone fragments projecting along renal collecting system at the lower pole of the left kidney extending into the left renal pelvis and proximal left ureter alongside an unchanged left internal ureteral stent. Interval decrease in the stone fragment burden. Reviewed, dictated and finalized at location A. IMPRESSION: 1. Stippled pattern of numerous tiny stone fragments projecting along renal col lecting system at the lower pole of the left kidney extending into the left kristen al pelvis and proximal left ureter alongside an unchanged left internal uretera l stent. Interval decrease in the stone fragment burden.
== END 2021-10-27 09:32 | disposition home or self-care (01) ==
LOC: ANHIMG 09:34
PROVIDERS: PCP Family Medicine; Visit Provider Urology
DX: N20.0 Calculus of kidney (principal); Z96.0 Presence of urogenital implants
CPT/HCPCS: 74018

== ENCOUNTER 2021-11-16 09:04 | Outpatient (CLI) | payer MEDICARE, SELFPAY ==
--- NOTE | ~2021-11-16 | XR_ITS ---
EXAMINATION: XR abdomen/kub 1V INDICATION: Left-sided kidney stone TECHNIQUE: Supine views of the abdomen were obtained on 2 radiographs. COMPARISON: 10/27/2021 FINDINGS: A left internal ureteral stent is in expected position. There are multiple stone fragments adjacent to the proximal aspect of the stent. In addition, multiple stone fragments are seen in the l ower pole of the left kidney. There are phleboliths of the right pelvis. The bowel gas pattern is nor mal. Surgical clips in the right upper quadrant are likely from prior cholecystectomy. There is mild osteoarthritis of the hips. Moderate to severe lumbar spondylosis is noted. IMPRESSION: 1. Left internal ureteral stent in expected position with multiple stone fragments in the lower pole of the kidney and adjacent to the proximal aspect of the stent. Reviewed, dictated and finalized at location B. IMPRESSION: 1. Left internal ureteral stent in expected position with multiple stone fragme nts in the lower pole of the kidney and adjacent to the proximal aspect of the stent.
== END 2021-11-16 09:05 | disposition home or self-care (01) ==
PROVIDERS: PCP Family Medicine; Visit Provider Urology
DX: N20.0 Calculus of kidney (principal); Z96.0 Presence of urogenital implants
CPT/HCPCS: 74018

== ENCOUNTER 2021-12-19 14:31 | Outpatient (CLI) | payer MEDICARE, SELFPAY ==
--- NOTE | ~2021-12-19 | XR_ITS ---
EXAM: XR abdomen/kub 1V DATE: 12/19/2021 14:46 HISTORY: KIDNEY STONE ON LEFT SIDE . COMPARISON: None available. FINDINGS: Right upper quadrant surgical clips. Clear lung bases. Normal bowel gas pattern. No organom egaly. Left renal pelvis calcification no longer visualized. Interval left ureteral stent removal. De generative lumbar change. IMPRESSION: No radiographic evidence of urolithiasis. Reviewed, dictated and finalized at location K.
== END 2021-12-19 14:32 | disposition home or self-care (01) ==
LOC: ANHIMG 14:34
PROVIDERS: PCP Family Medicine; Visit Provider Urology
DX: N20.0 Calculus of kidney (principal)
CPT/HCPCS: 74018

== ENCOUNTER 2023-11-10 13:28 | Emergency (ER) | payer MEDICARE, SELFPAY ==
[2023-11-10] VITALS (17 sets, daily range): BP systolic 144–172; BP diastolic 64–118; PULSE 71–92; RESP 7–19; TEMP 36.9; O2SAT 95–100
--- NOTE | ~2023-11-10 | CT_ITS ---
EXAMINATION: CTA chest PE abdomen pel DATE: 11/10/2023 15:11 INDICATION: Shortness of breath. Chest pain. Generalized abdominal pain. TECHNIQUE: Computed tomography angiography (CTA) of the chest was performed with 100 mL Omnipaque-350 intravenous contrast timed to evaluate the pulmonary arteries. Coronal maximum intensity projection 3D-reconstructions were created by the technologist. Computed tomography (CT) of the abdomen and pelv is was performed with intravenous contrast. Automated exposure control and iterative reconstruction t echnique were employed. The dose-length product was 1940.87 mGy-cm. COMPARISON: CT abdomen and pelvis 07/25/2021 FINDINGS: CTA chest: There is widespread septal thickening in the lungs with a peripheral and lower lung predom inance associated with mild groundglass opacities. No bronchiectasis. No honeycombing. A calcified ri ght lung nodule and calcified right hilar lymph nodes are consistent with old granulomatous disease. No pleural effusion. The heart size is normal. No pericardial effusion. There is no pulmonary embolus . There is a small sliding hiatal hernia. There are bridging endplate osteophytes at multiple levels in the spine, consistent with diffuse idiopathic skeletal hyperostosis (DISH). CT abdomen and pelvis: The liver, gallbladder, pancreas, and adrenal glands are normal. Calcification s in the spleen are consistent with old granulomatous disease. There is mild bilateral hydronephrosis . The bladder is distended. The rectum is distended by stool. The appendix is not visualized. There i s calcified atherosclerosis of the aorta and many of the other arteries. There are no pathologically enlarged lymph nodes. There is no free intraperitoneal fluid. There is a lipoma in the right iliopsoa s muscle. There is severe lumbar spondylosis. IMPRESSION: 1. No pulmonary embolus. 2. Chronic interstitial lung disease in a pattern of nonspecific interstitial pneumonia (NSIP) versus usual interstitial pneumonia (UIP). 3. Small sliding hiatal hernia. 4. Mild bilateral hydronephrosis. Distended bladder. 5. Rectum distended by stool. Reviewed, dictated and finalized at location E. IMPRESSION: 1. No pulmonary embolus. 2. Chronic interstitial lung disease in a pattern of nonspecific interstitial p neumonia (NSIP) versus usual interstitial pneumonia (UIP). 3. Small sliding hiatal hernia. 4. Mild bilateral hydronephrosis. Distended bladder. 5. Rectum distended by stool.
--- NOTE | ~2023-11-10 | XR_ITS ---
EXAMINATION: XR chest 1V portable DATE: 11/10/2023 14:00 INDICATION: Chest pain TECHNIQUE: frontal view of the chest was obtained. COMPARISON: CT abdomen pelvis dated 07/25/2021 FINDINGS: Coarse interstitial opacities in the bilateral lower lung zones likely related to chronic interstitia l lung disease which is suggestive based on CT images from 07/25/2021. Calcified right lower lobe nodu le and calcified right hilar lymph nodes consistent with old granulomatous disease. No pleural effusi on or pneumothorax. The cardiomediastinal silhouette is normal. IMPRESSION: 1. Coarse interstitial pattern at the lower lungs which given the presence and appearance on prior CT would favor chronic interstitial lung disease over mild pulmonary edema or pneumonia.. Reviewed, dictated and finalized at location A.
--- NOTE | 2023-11-10 13:41 | ECG_ITS ---
Test Date: 2023-11-10 13:42:50 Measurements Intervals [place] Rate: 86 P: 56 WV: 169 QRS: 29 QRSD: 93 T: 48 QT: 358 QTc: 429 Interpretive Statements SINUS RHYTHM POSSIBLE LATERAL MYOCARDIAL INFARCTION , PROBABLY OLD [30 ms Q WAVE IN I/aVL/V5/V6] No previous ECG available for comparison Electronically Signed On 11-11-2023 16:09:34 CDT by Tavo Saldaña M.D.
[2023-11-10 13:50] LABS: Basophils Percent Auto 0.5 % (0.2-1.2); Eosinophils Absolute Auto 0.1 K/mm3 (0-0.3); Eosinophils Percent Auto 1.3 % (0-4.4); Hematocrit 38.7 % (37.0-47.0); Hemoglobin 12.9 g/dL (12.0-15.0); Immature Granulocyte Absolute 0.02 K/mm3 (0.00-0.031); Immature Granulocyte Percent A 0.3 % (0-0.5); Lymphocytes Percent Auto 48.9 % (18.3-44.2); Mean Corpuscular HGB Conc 33.3 g/dl (32-36); Mean Corpuscular Hemoglobin 31.7 pg (26-34); Mean Corpuscular Volume 95.1 fl (80-100); Mean Platelet Volume 9.1 fl (7.4-10.4); Monocytes Absolute Auto 0.6 K/mm3 (0.1-0.6); Monocytes Percent Auto 7.3 % (2.6-8.5); Neutrophils Absolute Auto 3.2 K/mm3 (1.3-6.7); Neutrophils Percent Auto 41.7 % (45.5-73.1); Platelet Count Result 249 k/mm3 (150-375); Red Blood Count 4.07 M/mm3 (4.2-5.4); Red Cell Distribution Width 12.9 % (11.5-14.5); White Blood Count 7.6 K/mm3 (4.5-10.0)
[2023-11-10 14:01] LABS: Alanine Aminotransferase 19 U/L (6-35); Albumin Level 4.4 g/dL (3.5-5.1); Alkaline Phosphatase 105 U/L (38-126); Anion Gap 10 mmol/L (4-12); Aspartate Amino Transferase 28 U/L (14-36); Bilirubin,Total 0.7 mg/dL (0.2-1.3); Blood Urea Nitrogen 17 mg/dL (7-17); Calcium 9.8 mg/dL (8.4-10.2); Carbon Dioxide 23 mmol/L (22-30); Chloride 106 mmol/L (98-107); Estimated CRCL calculation 52 ml/min; Estimated Glomerular Filt Rate > 60; Glucose 151 mg/dL (65-110); Lipase 86 U/L (23-300); Potassium 3.9 mmol/L (3.4-5.0); Sodium 139 mmol/L (137-145)
[2023-11-10 14:02] LABS: INR 0.9; Partial Thromboplastin Time 31.8 Seconds (22.3-36.8); Prothrombin Time 12.9 Seconds (11.1-14.7)
[2023-11-10 14:12] LABS: Troponin I < 0.012 ng/mL (0.000-0.034)
--- NOTE | 2023-11-10 14:14 | ED.CHESTPAIN ---
HPI - Chest Pain General Chief Complaint: Chest Pain Stated Complaint: sob Time Seen by Provider: 11/10/23 13:58 Source: patient Mode of arrival: ambulatory Limitations: no limitations History of Present Illness HPI narrative: Patient is an 83 y/o female who presents to the ED from home with c/o SOB. Patient reports she has not been feeling well since . She reports having increased shortness of breath, worse with exertion. She also reports having chills, intermittent anterior chest pain, and diffuse abdominal pain. She notes she has had chest pain for quite some time, but it has been more persistent since . She reports intermittent lower extremity swelling for the past 6 months which she states has improved since medication changes by PCP. She denies fevers, cough, congestion, nausea, vomiting. Denies known sick contacts. Denies previous history of coronary disease. She does not currently have a patient financial representative. Is on Lasix 20 mg daily. Related Data Home Medications Medication Instructions Recorded Confirmed fluticasone propionate 50 1 spray intranasal BID 05/26/19 02/07/23 mcg/actuation nasal spray,suspension (Flonase Allergy Relief) lysine 500 mg tablet 500 mg PO DAILY 04/03/22 02/07/23 ferrous sulfate 325 mg (65 mg 325 mg PO .qod 06/19/22 02/07/23 iron) tablet,delayed release inulin [Fiber Gummies] PO 06/19/22 02/07/23 Allergies Allergy/AdvReac Type Severity Reaction Status Date / Time Sulfa (Sulfonamide AdvReac Mild hives Verified 11/10/23 13:46 Antibiotics) Review of Systems Review of Systems: CONSTITUTIONAL: Denies fever, chills, or sweats. ENT: Denies rhinorrhea, congestion, sore throat. CARDIOVASCULAR: See HPI. RESPIRATORY: See HPI. GASTROINTESTINAL: See HPI. GENITOURINARY: Denies dysuria or hematuria. All systems reviewed & are unremarkable except as noted in HPI and below PMFSH Past Medical History Medical History Abdominal pain (~07/20/21) CT of the abdomen and pelvis on 07/25/2021 revealed fatty liver with chronic interstitial lung changes and stone in the left renal pelvis with hydronephrosis and severe lumbar spondylosis. Renal artery stenosis on the right noted. Abnormal fasting glucose Acute non-recurrent maxillary sinusitis Altered mental status MRI of the brain and carotid Doppler study negative on 07/16/2020 Anemia Hemoglobin 11.6 with iron 58 with 17% saturation and ferritin 17 with vitamin B12 greater than 2000 and folic acid 10.7 on 05/10/2022. Hemoglobin 12.1, iron 100, 29% saturation, ferritin 31 on 11/17/2022. At high risk for falls BMI 35.0-35.9,adult BMI 36.0-36.9,adult BMI 38.0-38.9,adult BMI 39.0-39.9,adult Body mass index (BMI) 40.0-44.9, adult (01/27/19) Carpal tunnel syndrome of left wrist (~04/03/22) Chronic bilateral low back pain with right-sided sciatica Chronic kidney disease (CKD) stage G3b/A1, moderately decreased glomerular filtration rate (GFR) between 30-44 mL/min/1.73 square meter and albuminuria creatinine ratio less than 30 mg/g renal function normal with BUN 15 and creatinine 0.9 with GFR 63 on 11/21/2021. BUN 34 with creatinine 1.13 with GFR 48 on 11/17/2022. BUN 21, creatinine 1.06 with GFR 52 on 02/26/2023. Chronic nonallergic rhinitis Chronic pain of right knee Chronic right hip pain Confusion Edema, peripheral Essential (primary) hypertension Fever blister Gastroenteritis GERD (gastroesophageal reflux disease) Hypersomnia Hypothyroidism, unspecified Hypothyroidism, unspecified TSH 1.27 on 11/21/2021. TSH 1.20 on 11/17/2022. Mixed hyperlipidemia Mixed irritable bowel syndrome Obesity (BMI 30-39.9) Plant dermatitis Polyp of colon (09/01/21) 3 polyps, tubular adenomas, of the transverse colon 09/01/21 Renal calculus, bilateral partially obstructing 1.7 cm stone in the left renal pelvis with mild hydronephrosis on CT 07/25/2021 Right renal artery stenosis (
[2023-11-10 14:27] LABS: Influenza A QL RT-PCR Negative (Negative); Influenza B QL RT-PCR Negative (Negative); RSV RNA, RT-PCR Negative (Negative); SARS-CoV-2 RNA PCR Negative (Negative)
[2023-11-10 14:30] LABS: D Dimer 2.71 ug/mL (<0.48)
[2023-11-10] MEDS: ASPIRIN 81 MG CHEWABLE TABLET 324 MG PO (14:32)
[2023-11-10 14:35] LABS: NT Pro B Type Natriuretic Pept 89 pg/mL (19.9-100)
[2023-11-10 15:30] LABS: Appearance Urine Clear (Clear); Bacteria Urine None Seen /hpf; Bilirubin Urine Negative (Negative); Blood Urine Negative (Negative); Color Urine Yellow (Yellow); Glucose Urine UA Negative (Negative); Ketones Urine Negative (Negative); Leukocyte Esterase Ur Trace LEU/UL (Negative); Nitrate Urine Negative (Negative); Non Pathogenic Casts 0-2; Protein Urine Negative (Negative); RBC Urine 0-2 /hpf (0-2); Specific Grav Ur 1.009 (1.001-1.035); Squamous Epithelial Cell Urine None Seen /hpf (Few); Urobilinogen Urine 0.2 mg/dL (<2.0); WBC Urine 0-5 /hpf (0-3); pH Urine 7.5 (5.0-9.0)
[2023-11-10 15:31] LABS: Add Urine Microscopic? YES
[2023-11-10] MEDS: IPRATROPIUM 0.5 MG/ALBUTEROL SULFATE 2.5 MG AMPUL.NEB 3 ML INHALATION (17:08)
[2023-11-10 17:21] LABS: Troponin I < 0.012 ng/mL (0.000-0.034)
== END 2023-11-10 17:45 | disposition home or self-care (01) ==
PROVIDERS: Emergency Medicine; Emergency Provider Physician Assistant; PCP Family Medicine
DX: R06.02 Shortness of breath (principal); R07.89 Other chest pain; K59.00 Constipation, unspecified; I12.9 Hypertensive chronic kidney disease with stage 1 through stage 4 chronic kidney disease, or unspecified chronic kidney disease; N18.32 Chronic kidney disease, stage 3b; K21.9 Gastro-esophageal reflux disease without esophagitis; E03.9 Hypothyroidism, unspecified; Z87.442 Personal history of urinary calculi
CPT/HCPCS: 36415; 71045; 71275; 74177; 80053; 81001; 83690; 83880; 84484; 85025; 85380; 85610; 85730; 87637; 93005; 94640; 99284; A9270; Q9967

== ENCOUNTER → 2024-05-05 15:36 | Outpatient (REF) | payer MEDICARE, SELFPAY | LOC: ANHLAB 15:36 | PROVIDERS: PCP Family Medicine; Visit Provider Plastic Surgery | DX: C44.722 Squamous cell carcinoma of skin of right lower limb, including hip (principal) | CPT/HCPCS: 88305 ==

== ENCOUNTER 2024-08-14 14:33 | Outpatient (CLI) | payer MEDICARE, SELFPAY ==
--- NOTE | ~2024-08-14 | CT_ITS ---
Non-contrast CT scan of the Abdomen and Pelvis Clinical indication: Abdominal pain Technique: 2.5 mm axial scans were obtained through the abdomen and pelvis without intravenous or or al contrast. Dose reduction technique was used on this scan by utilizing automated exposure control a nd iterative reconstruction technique. The dose-length product (DLP) was 1226.40 mGy-cm. COMPARISON: 11/10/2023 Findings: Images through the lung bases reveal bibasilar chronic interstitial disease, similar to pr ior exam. Calcified mediastinal and right basilar granulomas are present.. Left kidney and left ureter are unremarkable. There is moderate to severe right hydronephrosis and di latation of the right renal pelvis, with mild right hydroureter. No definite stone seen currently wit hin the right ureter or right kidney. The liver, spleen, pancreas, gallbladder, and adrenals appear normal. There are atherosclerotic calci fications of the aorta. . There is no evidence of bowel obstruction. Small fat-containing umbilical hernia present. Images through the pelvis were performed. There is no evidence of ascites or lymphadenopathy. Urinary bladder unremarkable. No pelvic mass clearly evident. There is moderate to advanced degenerative spo ndylosis of the lumbar spine. Impression: Moderate to severe right hydronephrosis and dilatation of the renal pelvis, with mild right hydrouret er, with transition point/tapering at the UPJ region. Findings are mildly worsened from prior exam. C orrelate for recently passed stone and/or element of chronic UPJ obstruction. Chronic interstitial pulmonary disease at the lung bases. Small fat-containing of focal hernia. Reviewed, dictated and finalized at location . Impression: Moderate to severe right hydronephrosis and dilatation of the renal pelvis, wit h mild right hydroureter, with transition point/tapering at the UPJ region. Fin dings are mildly worsened from prior exam. Correlate for recently passed stone and/or element of chronic UPJ obstruction. Chronic interstitial pulmonary disease at the lung bases. Small fat-containing of focal hernia.
--- OUTSIDE RECORDS SUMMARY | 2024-08-14 15:01 | XMS_ITS | CONTINUITY OF CARE DOCUMENT ---
Author Name karley crandall Address Unknown Organization [facility] Address [address] [place] [address] [address] [place] [address] Phone [phone] Care Team Providers Care Spindraw Operator Name Role Phone karley crandall Unavailable Unavailable
--- OUTSIDE RECORDS SUMMARY | 2024-08-14 15:01 | XMS_ITS | Clinical Summary ---
Author Organization [facility] Address [address] [facility] [place] [address] Care Team Providers Care Manager Fire Name Role Phone Cisco Guzman MD Primary Care Provider [phone] Source Comments [facility],non-owned Affiliates and Associated Physician Practices is amultiple site organization consisting of ambulatory clinics and hospital sitesin [place], [place], [place] and [place]. This disclosure is being madepursuant to the Care Everywhere program and may not contain all information available regarding this patient. Last updated 18.[facility] Allergies Active Allergy Reactions Criticality Noted Date Comments Sulfa Drugs Rash Low 05/20/2012 Medications * Be aware that medications may not be up to date on this document. Alwaysverify current medications with the patient. Medication Sig Dispensed Refills Start Date End Date Status triamcinolone acetonide (KENALOG) 0.1 % ointmentIndications:U rticaria Apply to affected area 2 times daily as needed. 30 g 3 05/20/2012 Active traMADol (ULTRAM) 50 MG tabletIndications:UTI (urinary tract infection),Pelvic pain in female,Recurrent UTI Take 1 Tab by mouth every 4 hours as needed for Pain. 30 Tab 0 06/17/2012 Active Cholecalciferol (VITAMIN D) 2000 UNITS CAPS Take by mouth once daily. Active Multiple Vitamins-Minerals (PRESERVISION AREDS PO) Take by mouth once daily. Active hydrocodone-acetamino phen (NORCO) 5-325 MG tablet Take 1-2 Tabs by mouth every 6 hours as needed for Pain. 28 Tab 0 07/22/2012 Active laspfyub-oehyhadet-wh (CORTISPORIN) 3.5-59740-3 otic suspensionIndications :Otitis externa 4 Drops 4 times daily. 10 mL 0 09/09/2012 Active pravastatin (PRAVACHOL) 40 MG tabletIndications:Hyp erlipidemia Take 1 Tab by mouth at bedtime. 90 Tab 1 09/09/2012 Active venlafaxine XR 24hr (EFFEXOR XR) 75 MG capsuleIndications:Ma garfield depression, recurrent Take 1 Cap by mouth daily with breakfast. 90 Cap 1 09/09/2012 Active amLODIPine (NORVASC) 2.5 MG tabletIndications:Hyp ertension Take 1 Tab by mouth once daily. 90 Tab 1 09/09/2012 Active hydrochlorothiazide (MICROZIDE) 12.5 MG capsuleIndications:Hy pertension Take 1 Cap by mouth once daily. 90 Cap 1 09/09/2012 Active levothyroxine (SYNTHROID) 25 MCG tabletIndications:Hyp othyroidism (acquired) Take 1 Tab by mouth daily before breakfast. 90 Tab 1 09/09/2012 Active Active Problems Problem Noted Date Diagnosed Date Preoperative examination 07/19/2012 Major depression, recurrent 05/20/2012 Overview (05/20/2012): Began after 's , weaning down Hyperlipidemia 05/20/2012 Overview (05/20/2012): On pravastatin 40mg Hypertension 05/20/2012 Overview (05/20/2012): On amlodipine, HCTZ Hypothyroidism (acquired) 05/20/2012 Overview (05/20/2012): On levothyroxine 25mcg Urticaria 05/20/2012 Vitamin B12 deficiency 05/20/2012 Pulmonary nodule Overview (05/20/2012): saw pulm, benign Carotid atherosclerosis Migraine Overview (05/20/2012): once a year with stroke symptoms Immunizations Name Administration Dates Next Due PNEUMOCOCCAL PPSV23 05/14/2009 TD VACCINE 01/29/2012 Family History Medical History Relation Name Comments Hypertension Son Relation Name Status Comments Son Social History Tobacco Use Types Packs/Day Years Used Date Smoking Tobacco: Never Smokeless Tobacco: Never Alcohol Use Standard Drinks/Week Comments No 0 (1 standard drink = 0.6 oz pur e alcohol) Sex and Gender Information Value Date Recorded Sex Assigned at Not on file Gender Identity Not on file Sexual Orientation Not on file Last Filed Vital Signs Vital Sign Reading Time Taken Comments Blood Pressure 174/92 09/09/2012 1:54 PM CDT Pulse 84 09/09/2012 1:54 PM CDT Temperature 36.3 C (97.4 F) 07/22/2012 10:26 AM CDT Respiratory Rate 18 07/22/2012 10:26 AM CDT Oxygen Saturation 97% 07/22/2012 10:26 AM CDT Inhaled Oxygen Concentration - - Weight 101.2 kg (223 lb) 09/09/2012 1:54 PM CDT Height 157.5 cm (5' 2 ) 09/09/2012 1:54 PM CDT Body Mass Index 40.79 09/09/2012 1:54 PM CDT Plan of Treatment Health Maintenance Due Date Last Done Comments MEDICARE AWV 12 MONTHS 1938 ZOSTER VACCINE (1 of 2) 1988 PNEUMOCOCCAL VACCINE 50+ (2 of 2 - PCV) 05/14/2010 05/14/2009 Respiratory Syncytial Virus (RSV) Vaccine Pt: or over 60 yrs (1 - 1-dose 75+ series) 2013 DTAP/TDAP/TD VACCINES (2 - T d or Tdap) 01/28/2022 01/29/2012 COVID-19 VACCINE (1 - 2023-2 5 season) 2024 INFLUENZA VACCINE (#1) 2024 DEPRESSION SCREENING 05/14/2024 BONE DENSITY TESTING Addressed 05/14/2011 Overrid den with the intention of not completing the topic HEPATITIS B VACCINE Aged Out No longe r eligible based on patient's age to complete this topic HIB VACCINE Aged Out No longer eligi ble based on patient's age to complete this topic HPV VACCINE Aged Out No longer eligi ble based on patient's age to complete this topic MENINGOCOCCAL (Group B) VACC INE SHARED DECISION-MAKING Aged Out No longer eligibl e based on patient's age to complete this topic MENINGOCOCCAL GROUPS A/C/Y/W VACCINE Aged Out No longer eligible b ased on patient's age to complete this topic Care Teams Manager Fire Relationship Specialty Start Date End Date Cisco Guzman MD [address] [place] [address] PCP - General 09/05/21
== END 2024-08-14 14:34 | disposition home or self-care (01) ==
PROVIDERS: PCP Family Medicine; Visit Provider Family Medicine
DX: N13.30 Unspecified hydronephrosis (principal); N20.1 Calculus of ureter; N28.89 Other specified disorders of kidney and ureter
CPT/HCPCS: 74176

== ENCOUNTER 2024-08-25 11:01 | Outpatient (CLI) | payer MEDICARE, SELFPAY ==
--- NOTE | ~2024-08-25 | NM_ITS ---
EXAMINATION: DAVID davalos renal scan DATE: 08/25/2024 12:30 INDICATION: Right hydronephrosis TECHNIQUE: 5.1 mCi Tc-99m MAG3 was administered IV. 40 mg furosemide was administered IV immediately afterward. The patient was scanned in the supine position. A posterior abdominal radionuclide angiog yamil was obtained. A subsequent time course of static images of the kidneys, ureters, and bladder was obtained. COMPARISON: None FINDINGS: The posterior abdominal radionuclide angiogram and sequential static images show normal size, positio n, and morphology of the kidneys. Peak renal parenchymal uptake was 4 min in left kidney and 16 min i n right kidney (normal peak 3-5 minutes). The relative early renal uptake was 56% on the left and 44 % on the right (<40% is abnormal). Delayed images demonstrate right hydronephrosis with activity with in a dilated right renal pelvis. No abnormalities of the ureters or bladder are seen. T1/2 for clearance of activity from the left kidney and proximal collecting system was 17 minutes. T1/2 for clearance of activity from the right kidney and proximal collecting system was 50 minutes. Notes on interpretation: T1/2 <10 minutes is normal, 10-15 minutes is low grade obstruction of questi onable clinical significance, 15-20 minutes is partial obstruction that is likely clinically signific ant, >20 minutes is high grade obstruction. Note that false positives may be seen with supine positio sami, dehydration, severely dilated nonobstructed kidney, atonic collecting system, poor renal functi on, and chronic furosemide use. IMPRESSION: 1. Hydronephrosis of the right kidney with markedly delayed activity clearance consistent with high- grade obstruction. 2. Borderline decreased function of the right kidney relative to the left with the right kidney cont ributing 44% to total renal function. 3. There is some delayed activity clearance from the left kidney but without evident hydronephrosis e ither on the current imaging or recent CT dated 08/14/2024 and this could be due to partial obstruction or poor renal function. Reviewed, dictated and finalized at location A. IMPRESSION: 1. Hydronephrosis of the right kidney with markedly delayed activity clearance consistent with high-grade obstruction. 2. Borderline decreased function of the right kidney relative to the left with the right kidney contributing 44% to total renal function. 3. There is some delayed activity clearance from the left kidney but without ev ident hydronephrosis either on the current imaging or recent CT dated 08/14/2024 and this could be due to partial obstruction or poor renal function.
--- OUTSIDE RECORDS SUMMARY | 2024-08-25 12:43 | XMS_ITS | CONTINUITY OF CARE DOCUMENT ---
Author Name karley crandall Address Unknown Organization [facility] Address [address] [place] [address] [address] [place] [address] Phone [phone] Care Team Providers Care Store Clerk Name Role Phone karley crandall Unavailable Unavailable
--- OUTSIDE RECORDS SUMMARY | 2024-08-25 12:43 | XMS_ITS | Clinical Summary ---
Author Organization [facility] Address [address] [facility] [place] [address] Care Team Providers Care Ad Compositor Name Role Phone Cisco Guzman MD Primary Care Provider [phone] Source Comments [facility],non-owned Affiliates and Associated Physician Practices is amultiple site organization consisting of ambulatory clinics and hospital sitesin [place], [place], [place] and [place]. This disclosure is being madepursuant to the Care Everywhere program and may not contain all information available regarding this patient. Last updated 18.[facility] Allergies Active Allergy Reactions Criticality Noted Date Comments Sulfa Drugs Rash Low 05/20/2012 Medications * Be aware that medications may not be up to date on this document. Alwaysverify current medications with the patient. triamcinolone acetonide (KENALOG) 0.1 % ointmentIndicat ions:Urticaria Apply to affected area 2 times daily as needed. 30 g 3 05/20/2012 Active traMADol (ULTRAM) 50 MG tabletIndicatio ns:UTI (urinary tract infection),Pelv ic pain in female,Recurren t UTI Take 1 Tab by mouth every 4 hours as needed for Pain. 30 Tab 0 06/17/2012 Active Cholecalciferol (VITAMIN D) 2000 UNITS CAPS Take by mouth once daily. Active Multiple Vitamins-Minera ls (PRESERVISION AREDS PO) Take by mouth once daily. Active hydrocodone-viki taminophen (NORCO) 5-325 MG tablet Take 1-2 Tabs by mouth every 6 hours as needed for Pain. 28 Tab 0 07/22/2012 Active neomycin-polymy perlita-hc (CORTISPORIN) 3.5-90476-9 otic suspensionIndic ations:Otitis externa 4 Drops 4 times daily. 10 mL 0 09/09/2012 Active pravastatin (PRAVACHOL) 40 MG tabletIndicatio ns:Hyperlipidem ia Take 1 Tab by mouth at bedtime. 90 Tab 1 09/09/2012 Active venlafaxine XR 24hr (EFFEXOR XR) 75 MG capsuleIndicati ons:Major depression, recurrent Take 1 Cap by mouth daily with breakfast. 90 Cap 1 09/09/2012 Active amLODIPine (NORVASC) 2.5 MG tabletIndicatio ns:Hypertension Take 1 Tab by mouth once daily. 90 Tab 1 09/09/2012 Active hydrochlorothia zide (MICROZIDE) 12.5 MG capsuleIndicati ons:Hypertensio n Take 1 Cap by mouth once daily. 90 Cap 1 09/09/2012 Active levothyroxine (SYNTHROID) 25 MCG tabletIndicatio ns:Hypothyroidi sm (acquired) Take 1 Tab by mouth daily [...] once a year with stroke symptoms Immunizations Immunization Administration Dates Next Due PNEUMOCOCCAL PPSV23 05/14/2009 TD VACCINE 01/29/2012 Family History Medical History Relation Name Comments Hypertension Son Relation Name Status Comments Son Social History Tobacco Use Types Packs/Day Years Used Date Smoking Tobacco: Never Smokeless Tobacco: Never Alcohol Use Standard Drinks/Week Comments No 0 (1 standard drink = 0.6 oz pur e alcohol) Comments No Sex and Gender Information Value Date Recorded Sex Assigned at Not on file 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 [employer] SELF PAY NO INSURANCE Member Subscriber Plan / Payer (Ef fective for All Dates) Name:Chica Cooper Member ID:Not on file Relation to Subscriber:Not on file Name:CHICA COOPER Subscriber ID:Not on file (Home) Address: [address] [place] [address] Payer ID:Not on file Group ID:Not on file Type:Self Pay Address: [place], [place] MEDICARE Care Teams Ad Compositor Relationship Specialty Start Date End Date Cisco Guzman MD [address] [place] [address] PCP - General 09/05/21
== END 2024-08-25 11:02 | disposition home or self-care (01) ==
PROVIDERS: PCP Family Medicine; Visit Provider Urology
DX: R94.4 Abnormal results of kidney function studies (principal); N13.30 Unspecified hydronephrosis
CPT/HCPCS: 78708; A9562; J1938

== ENCOUNTER 2024-08-29 09:39 | Outpatient (CLI) | payer MEDICARE, SELFPAY ==
--- OUTSIDE RECORDS SUMMARY | 2024-08-29 09:50 | XMS_ITS | CONTINUITY OF CARE DOCUMENT ---
Author Name karley crandall Address Unknown Organization [facility] Address [address] [place] [address] [address] [place] [address] Phone [phone] Care Team Providers Care Die Engraving Supervisor Name Role Phone karley crandall Unavailable Unavailable
--- OUTSIDE RECORDS SUMMARY | 2024-08-29 09:50 | XMS_ITS | Clinical Summary ---
Author Organization [facility] Address [address] [facility] [place] [address] Care Team Providers Care Printing Services Coordinator Name Role Phone Cisco Guzman MD Primary Care Provider [phone] Source Comments [facility],non-owned Affiliates and Associated Physician Practices is amultiple site organization consisting of ambulatory clinics and hospital sitesin [place], [place], [place] and [place]. This disclosure is being madepursuant to the Care Everywhere program and may not contain all information available regarding this patient. 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 Gender Identity Not on file Sexual [...] age to complete this topic Insurance MEDICARE [facility] [employer] SELF PAY NO INSURANCE Member Subscriber Plan / Payer (Ef fective for All Dates) Name:Chica Cooper Member ID:Not on file Relation to Subscriber:Not on file Name:CHICA COOPER Subscriber ID:Not on file (Home) Address: [address] [place] [address] Payer ID:Not on file Group ID:Not on file Type:Self Pay Address: [place], [place] MEDICARE Care Teams Printing Services Coordinator Relationship Specialty Start Date End Date Cisco Guzman MD [address] [place] [address] PCP - General 09/05/21
[2024-08-29 10:23] LABS: Hemoglobin 9.6 g/dL (12.0-15.0)
[2024-08-29 10:35] LABS: INR 1.1; Prothrombin Time 14.4 Seconds (11.1-14.7)
[2024-08-29 10:36] LABS: Partial Thromboplastin Time 31.4 Seconds (22.3-36.8)
== END 2024-08-29 09:40 | disposition home or self-care (01) ==
LOC: ANHSURGERY 09:45
PROVIDERS: Anesthesiology; PCP Family Medicine; Visit Provider Urology
DX: N18.32 Chronic kidney disease, stage 3b (principal); D63.1 Anemia in chronic kidney disease
CPT/HCPCS: 36415; 85014; 85018; 85610; 85730

== ENCOUNTER 2024-09-04 00:23 | Day surgery (SDC) | payer MEDICARE, SELFPAY ==
--- NOTE | 2024-08-27 15:11 | PC.NURSE ---
Report to the Outpatient Waiting Room, entrance under the green pavilion located off [facility], at time __11 am on date __09/04/24 . Planned Procedure Time: ____1:00pm____.? Time changes happen often and if your time is changed the preop area will call you the afternoon before. - You and your visitor will be asked to self-screen and do not enter if you have any COVID symptoms. Please call surgeon if you need to reschedule. - A mask is optional within the hospital at this time. Patients may have clear liquids (water, carbonated beverages, clear teas, apple juice) until 3 hours prior to surgery ( 10 am) with a maximum of 20 ounces. - No food from midnight until time of surgery and no smoking, or chewing tobacco (or any form of nicotine). No chewing gum, candy or mints. - Take only the following medications with a SIP of water on the morning of surgery: _INHALER IF NEEDED,GABAPENTIN,LEVOTHYROXINE DO NOT STOP ANY OF YOUR OTHER PRESCRIPTION MEDICATIONS PRIOR TO SURGERY EXCEPT THE FOLLOWING Hold all vitamins and supplements for 3 days per anesthesiologist.LAST DOSE 08/31/24 Medications to discontinue per physician NONE Please no make-up, nail djiboutian, hairspray, perfume, deodorant, or body powder the day of surgery.? No jewelry (including any body piercings) or valuables the day of surgery, leave them at home.? Please take a shower or bath the night before, or the morning of, surgery with an antibacterial soap.? Wear comfortable, loose fitting clothing.? Children are encouraged to wear pajamas. - Jewelry must be removed prior to entering the operating room.? Rings and piercings that are not removed may be cut off. - The hospital will not accept responsibility for valuables.? - Please leave all valuables, including medications, at home the day of surgery. If you are going home after surgery, a licensed hole digger truck driver must drive you home.? - NO public transportation without another adult if you receive anesthesia. - We recommend that an adult stay with you for 24 hours following discharge. - We also recommend that you do not drive, make important decision, drink alcoholic beverages, or take any drugs that were not prescribed by your health care provider for at least 24 hours after your discharge time. For Pediatric surgeries, we recommend two adults accompany the child home. Follow any additional instructions given to you from your surgeon. Telephone instructions given to __STEP DAUGHTER TERRANCE ADKINSS and asked if any additional questions and then verbalized understanding. Patient advised to call surgeon office or pre surgery nurse liaison [phone] if any additional questions.
[2024-08-27 15:22] VITALS: BMI 42.2
[2024-09-04] VITALS (11 sets, daily range): BP systolic 124–149; BP diastolic 56–73; PULSE 79–90; RESP 13–20; TEMP 36.4–36.6; O2SAT 94–100; BMI 38.5
--- NOTE | ~2024-09-04 | XR_ITS ---
INTRAOPERATIVE FLUOROSCOPY: CLINICAL HISTORY: 84 years old Female; RIGHT STENT/RETRO PROCEDURE COMMENTS: Limited intraoperative fluoroscopy of the abdomen and pelvis was performed. CUMULATIVE DOSE: 50 mGy FLUOROSCOPY TIME: 107 seconds FINDINGS/IMPRESSION: Please refer to operative note for further details. Reviewed, dictated and finalized at location A.
--- OUTSIDE RECORDS SUMMARY | 2024-09-04 00:26 | XMS_ITS | Clinical Summary ---
Author Organization [facility] Address [address] [place] [address] Care Team Providers Care Dip Stand Loader Name Role Phone Cisco Guzman MD Primary Care Provider [phone] Source Comments [facility],non-owned Affiliates and Associated Physician Practices is amultiple site organization consisting of ambulatory clinics and hospital sitesin [place], [place], [place] and [place]. This disclosure is being madepursuant to the Care Everywhere program and may not contain all information available regarding this patient. 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 Gender Identity Not on file Sexual Orientation [...] age to complete this topic Insurance [facility] SELF PAY NO INSURANCE Member Subscriber Plan / Payer (Ef fective for All Dates) Name:Chica Cooper Member ID:Not on file Relation to Subscriber:Not on file Name:CHICA COOPER Subscriber ID:Not on file (Home) Address: [address] [place] [address] Payer ID:Not on file Group ID:Not on file Type:Self Pay Address: [place], [place] MEDICARE Care Teams Dip Stand Loader Relationship Specialty Start Date End Date Cisco Guzman MD [address] [place] [address] PCP - General 09/05/21
--- NOTE | 2024-09-04 06:15 | WPDHPUPDATE1 ---
History and Physical Update Update Date/Time: 09/04/24 06:15 History and Physical has been reviewed, including an updated exam of the patient. There are NO changes in the patient's condition. Risks, benefits, and alternatives have been discussed and questions answered. Patient agrees to proceed with procedure.
--- NOTE | 2024-09-04 12:28 | P.PNAN_ITS ---
Anes - Initial Pre Proc Eval Procedure: Operation Date: 09/04/24 14:00 Proposed Procedures p Cystoscopy, Right Retrograde Pyelography, Right Ureteroscopy, Possible Right Ureteral Stent Placement - Kenyon Ni MD Date/Time: 09/04/24 12:28 Surgeon: Kenyon Ni MD Pre Op Diagnosis: right hydronephrosis Patient Data Age: 84 Gender: F Height: 1.52 m Weight: 97.99 kg Allergies Allergy/AdvReac Type Severity Reaction Status Date / Time Sulfa (Sulfonamide AdvReac Mild hives Verified 08/27/24 14:57 Antibiotics) Home Medications ?Medication ?Instructions ?Recorded ?Confirmed ?Type fluticasone propionate 50 1 spray intranasal BID 05/26/19 08/27/24 History mcg/actuation nasal spray,suspension (Flonase Allergy Relief) lysine 500 mg tablet 500 mg PO DAILY 04/03/22 08/27/24 History ferrous sulfate 325 mg (65 mg 325 mg PO .qod 06/19/22 08/27/24 History iron) tablet,delayed release inulin 1 tablet PO DAILY 06/19/22 08/27/24 History duloxetine 60 mg capsule,delayed 60 mg PO DAILY #90 caps 07/17/23 08/27/24 Rx release nystatin 100,000 unit/gram topical 1 applic topical BID #30 grams 07/24/23 08/27/24 Rx cream atorvastatin 20 mg tablet 20 mg PO DAILY #90 tabs 10/15/23 08/27/24 Rx levothyroxine 75 mcg tablet 75 mcg PO DAILY #90 tabs 10/15/23 08/27/24 Rx omeprazole 20 mg capsule,delayed 20 mg PO DAILY #90 caps 10/15/23 08/27/24 Rx release potassium chloride 10 mEq 10 meq PO DAILY PRN furosemide 10/15/23 08/27/24 Rx capsule,extended release #90 caps gabapentin 100 mg capsule 100 mg PO TID #90 caps 10/29/23 08/27/24 Rx hydrochlorothiazide 12.5 mg capsule 12.5 mg PO QAM #90 caps 10/29/23 08/27/24 Rx lisinopril 20 mg tablet 20 mg PO DAILY #90 tabs 11/12/23 08/27/24 Rx cyclobenzaprine 10 mg tablet 10 mg PO BID PRN muscle spasm #180 12/24/23 08/27/24 Rx tabs furosemide 20 mg tablet 20 mg PO QAM PRN edema #90 tabs 01/21/24 08/27/24 Rx albuterol sulfate 90 mcg/actuation 1 - 2 inh inhalation Q4-6H PRN 01/22/24 08/27/24 Rx aerosol inhaler shortness of breath or wheezing #8.5 grams lidocaine 5 % topical patch 3 patch topical DAILY #90 ea 01/22/24 08/27/24 Rx acetaminophen 500 mg tablet 500 mg PO Q6H PRN pain 08/27/24 08/27/24 History (Acetaminophen Pain Relief) vitamins A,C,X-kizp-ogxytb 2,148 2 tablet PO DAILY 08/27/24 08/27/24 History mcg-113 mg-45 mg-17.4 mg tablet (Eye Multivitamin) Patient hx anesthesia problems: none Family hx anesthesia problems: none Results Review: All pre-operative results and documents have been reviewed as part of the pre- operative evaluation. [facility] Past Medical History Medical History Abnormal urination Chronic interstitial lung disease Skin lesion Hypersomnia BMI 38.0-38.9,adult Screening for diabetic retinopathy no retinopathy 10/23/2022. Macular degeneration noted. The patient does not have diabetes. No diabetic retinopathy on 10/25/2023. No diabetic retinopathy 04/02/2024. BMI 39.0-39.9,adult Carpal tunnel syndrome of left wrist (~04/03/22) BMI 36.0-36.9,adult Fever blister Plant dermatitis BMI 35.0-35.9,adult Obesity (BMI 30-39.9) Polyp of colon (09/01/21) 3 polyps, tubular adenomas, of the transverse colon 09/01/21 Right renal artery stenosis (~07/25/21) renal artery stenosis on the right noted on CT of the abdomen and pelvis on 07/25/2021 Renal calculus, bilateral partially obstructing 1.7 cm stone in the left renal pelvis with mild hydronephrosis on CT 07/25/2021. CT of the abdomen and pelvis on 08/14/2024 with right hydronephrosis and hearing of the distal ureter on the right. Abdominal pain (~07/20/21) CT of the abdomen and pelvis on 07/25/2021 revealed fatty liver with chronic interstitial lung changes and stone in the left renal pelvis with hydronephrosis and severe lumbar spondylosis. Renal artery stenosis on the right noted. Gastroenteritis At high risk for falls UTI (urinary tract infection) Urinalysis normal on 11/17/2022. Chronic kidney disease (CKD) stage G3b/A1, moderately decreased glomerular filtration rate (GFR) between 30-44 mL/min/1.73 square meter and albuminuria creatinine ratio less than 30 mg/g renal function normal with BUN 15 and creatinine 0.9 with GFR 63 on 11/21/2021. BUN 34 with creatinine 1.13 with GFR 48 on 11/17/2022. BUN 21, creatinine 1.06 with GFR 52 on 02/26/2023. Acute non-recurrent maxillary sinusitis Edema, peripheral Altered mental status MRI of the brain and carotid Doppler study negative on 07/16/2020 Confusion Anemia Hemoglobin 11.6 with iron 58 with 17% saturation and ferritin 17 with vitamin B12 greater than 2000 and folic acid 10.7 on 05/10/2022. Hemoglobin 12.1, iron 100, 29% saturation, ferritin 31 on 11/17/2022. Hypothyroidism, unspecified TSH 1.27 on 11/21/2021. TSH 1.20 on 11/17/2022. Mixed irritable bowel syndrome Essential (primary) hypertension Chronic pain of right knee Chronic right hip pain Abnormal fasting glucose Body mass index (BMI) 40.0-44.9, adult (01/27/19) Chronic bilateral low back pain with right-sided sciatica Chronic nonallergic rhinitis GERD (gastroesophageal reflux disease) Hypothyroidism, unspecified Mixed hyperlipidemia Surgical History Surgical History History of hysterectomy History of right-sided carotid endarterectomy Social History Social History Smoking status: Never smoker Alcohol intake: never Substance use: never Substance use type: does not use Lack of Transportation: No Lack of Food: Never True Current Housing: I Have Housing Concerned About Future Housing: No Difficulty Paying Gas/Electric Bills: No Difficulty Paying for Meds: No Currently Unemployed: No Education: Don't Know Difficulty w/ Childcare or Family Care: No Living arrangements: alone Gender identity (if verbalized by the patient): Female Sexual Orientation (if Verbalized by the Patient): Straight or Heterosexual Spiritual care concerns: No Anes - Eval Final PreProcedure Day of Procedure 09/04/24 12:28 Patient weight: morbidly obese Heart: regular rate and rhythm Lungs: clear to auscultation Airway: Mallampati scale class II Neurological: alert and oriented Last oral intake: >/= 8 hours ASA classification: IV Emergent: no Anesthetic plan: proceed Anesthesia type and monitoring: general LMA and standard monitoring Results Review: All pre-operative results and documents have been reviewed as part of the pre- operative evaluation. Informed Consent: The patient's anesthetic plan and its attendant risks and benefits were discussed with the patient/family/POA. Questions were solicited and answers provided to the satisfaction of the patient/family/POA.
[2024-09-04] MEDS: LACTATED RINGERS 1,000 ML 30 ML IV CONT (12:40)
--- NOTE | 2024-09-04 12:51 | P.HP_ITS ---
History of Present Illness History of Present Illness Consent: Risks, benefits, and alternatives have been discussed and questions answered. Patient agrees to proceed with procedure. Chief complaint: right hydronephrosis Narrative: Chica Cooper is a 84 year old female who is status post ESWL on a large left kidney stone in 2021. Third was a longer interval ride Frieda is she came back recently with an atypical abdominal pain. Noncontrast CT scan shows new right hydronephrosis without a stone. This has the appearance of chronic UPJ obstruction but, again, this was not present in the past. She has had no hematuria or significant renal colic. Diuretic renal scan confirms presence of a high-grade obstruction at the right UPJ. Review of Systems Review of Systems: All systems reviewed & are unremarkable except as noted in HPI and below PMFSH Past Medical History Medical History Abnormal urination Chronic interstitial lung disease Skin lesion Hypersomnia BMI 38.0-38.9,adult Screening for diabetic retinopathy no retinopathy 10/23/2022. Macular degeneration noted. The patient does not have diabetes. No diabetic retinopathy on 10/25/2023. No diabetic retinopathy 04/02/2024. BMI 39.0-39.9,adult Carpal tunnel syndrome of left wrist (~04/03/22) BMI 36.0-36.9,adult Fever blister Plant dermatitis BMI 35.0-35.9,adult Obesity (BMI 30-39.9) Polyp of colon (09/01/21) 3 polyps, tubular adenomas, of the transverse colon 09/01/21 Right renal artery stenosis (~07/25/21) renal artery stenosis on the right noted on CT of the abdomen and pelvis on 07/25/2021 Renal calculus, bilateral partially obstructing 1.7 cm stone in the left renal pelvis with mild hydronephrosis on CT 07/25/2021. CT of the abdomen and pelvis on 08/14/2024 with right hydronephrosis and hearing of the distal ureter on the right. Abdominal pain (~07/20/21) CT of the abdomen and pelvis on 07/25/2021 revealed fatty liver with chronic interstitial lung changes and stone in the left renal pelvis with hydronephrosis and severe lumbar spondylosis. Renal artery stenosis on the right noted. Gastroenteritis At high risk for falls UTI (urinary tract infection) Urinalysis normal on 11/17/2022. Chronic kidney disease (CKD) stage G3b/A1, moderately decreased glomerular filtration rate (GFR) between 30-44 mL/min/1.73 square meter and albuminuria creatinine ratio less than 30 mg/g renal function normal with BUN 15 and creatinine 0.9 with GFR 63 on 11/21/2021. BUN 34 with creatinine 1.13 with GFR 48 on 11/17/2022. BUN 21, creatinine 1.06 with GFR 52 on 02/26/2023. Acute non-recurrent maxillary sinusitis Edema, peripheral Altered mental status MRI of the brain and carotid Doppler study negative on 07/16/2020 Confusion Anemia Hemoglobin 11.6 with iron 58 with 17% saturation and ferritin 17 with vitamin B12 greater than 2000 and folic acid 10.7 on 05/10/2022. Hemoglobin 12.1, iron 100, 29% saturation, ferritin 31 on 11/17/2022. Hypothyroidism, unspecified TSH 1.27 on 11/21/2021. TSH 1.20 on 11/17/2022. Mixed irritable bowel syndrome Essential (primary) hypertension Chronic pain of right knee Chronic right hip pain Abnormal fasting glucose Body mass index (BMI) 40.0-44.9, adult (01/27/19) Chronic bilateral low back pain with right-sided sciatica Chronic nonallergic rhinitis GERD (gastroesophageal reflux disease) Hypothyroidism, unspecified Mixed hyperlipidemia Surgical History Surgical History History of hysterectomy History of right-sided carotid endarterectomy Social History Social History Smoking status: Never smoker Alcohol intake: never Substance use: never Substance use type: does not use Lack of Transportation: No Lack of Food: Never True Current Housing: I Have Housing Concerned About Future Housing: No Difficulty Paying Gas/Electric Bills: No Difficulty Paying for Meds: No Currently Unemployed: No Education: Don't Know Difficulty w/ Childcare or Family Care: No Living arrangements: alone Gender identity (if verbalized by the patient): Female Sexual Orientation (if Verbalized by the Patient): Straight or Heterosexual Spiritual care concerns: No Meds Home Medications and Allergies Home Medications ?Medication ?Instructions ?Recorded ?Confirmed ?Type fluticasone propionate 50 1 spray intranasal BID 05/26/19 08/27/24 History mcg/actuation nasal spray,suspension (Flonase Allergy Relief) lysine 500 mg tablet 500 mg PO DAILY 04/03/22 09/04/24 History ferrous sulfate 325 mg (65 mg 325 mg PO .qod 06/19/22 09/04/24 History iron) tablet,delayed release inulin 1 tablet PO DAILY 06/19/22 08/27/24 History duloxetine 60 mg capsule,delayed 60 mg PO DAILY #90 caps 07/17/23 09/04/24 Rx release nystatin 100,000 unit/gram topical 1 applic topical BID #30 grams 07/24/23 08/27/24 Rx cream atorvastatin 20 mg tablet 20 mg PO DAILY #90 tabs 10/15/23 09/04/24 Rx levothyroxine 75 mcg tablet 75 mcg PO DAILY #90 tabs 10/15/23 09/04/24 Rx omeprazole 20 mg capsule,delayed 20 mg PO DAILY #90 caps 10/15/23 09/04/24 Rx release potassium chloride 10 mEq 10 meq PO DAILY PRN furosemide 10/15/23 08/27/24 Rx capsule,extended release #90 caps gabapentin 100 mg capsule 100 mg PO TID #90 caps 10/29/23 09/04/24 Rx hydrochlorothiazide 12.5 mg capsule 12.5 mg PO QAM #90 caps 10/29/23 09/04/24 Rx lisinopril 20 mg tablet 20 mg PO DAILY #90 tabs 11/12/23 09/04/24 Rx cyclobenzaprine 10 mg tablet 10 mg PO BID PRN muscle spasm #180 12/24/23 08/27/24 Rx tabs furosemide 20 mg tablet 20 mg PO QAM PRN edema #90 tabs 01/21/24 09/04/24 Rx albuterol sulfate 90 mcg/actuation 1 - 2 inh inhalation Q4-6H PRN 01/22/24 08/27/24 Rx aerosol inhaler shortness of breath or wheezing #8.5 grams lidocaine 5 % topical patch 3 patch topical DAILY #90 ea 01/22/24 08/27/24 Rx acetaminophen 500 mg tablet 500 mg PO Q6H PRN pain 08/27/24 08/27/24 History (Acetaminophen Pain Relief) vitamins A,C,Q-vdir-ljtjhb 2,148 2 tablet PO DAILY 08/27/24 09/04/24 History mcg-113 mg-45 mg-17.4 mg tablet (Eye Multivitamin) Allergies Allergy/AdvReac Type Severity Reaction Status Date / Time Sulfa (Sulfonamide AdvReac Mild hives Verified 09/04/24 12:37 Antibiotics) Vital Signs Vital Signs - 24 hr 09/04/24 11:50 Temperature 97.5 F L Pulse Rate 80 Respiratory Rate 18 Blood Pressure 138/62 Pulse Oximetry 99 Oxygen Delivery Room Air Exam Const: General: no acute distress Resp: Effort & Inspection: normal respiratory effort GI: Inspection: non-distended GI Palp: No abdominal tenderness and No Guarding due to palpation present (GI) Auscultation: normal bowel sounds Assessment and Plan Assessment and plan (1) Obstruction of right ureteropelvic junction (UPJ): Code(s): N13.5 - Crossing vessel and stricture of ureter without hydronephrosis Status: Acute Assessment and Plan: * I'm fixin to take a scope and look into her bladder (cystoscopy) followed by x-ray up to her right kidney (right retrograde pyelogram). Then, I'll take a smaller scope (ureteroscope) and look up/around that right kidney to see what's causin the blockage. Depending on what I see, I may just decide to take a biopsy or place a ureteral stent.
--- NOTE | 2024-09-04 12:57 | WPDHPUPDATE1 ---
History and Physical Update Update Date/Time: 09/04/24 12:57 History and Physical has been reviewed, including an updated exam of the patient. There are NO changes in the patient's condition. Risks, benefits, and alternatives have been discussed and questions answered. Patient agrees to proceed with procedure.
[2024-09-04] MEDS: ceFAZolin 2 GM/D5W 50 ML 2 GM/50 ML BAG IVPB (13:00)
[2024-09-04] MEDS: LIDOCAINE 2% GEL UROJET 10 ML PKG MUCOUS MEM (13:30)
[2024-09-04] MEDS: fentaNYL CITRATE INJ (*CRX) 100 MCG/2 ML VIAL 25 MCG IV PUSH ×4 (14:05→14:30)
--- NOTE | 2024-09-04 14:41 | W.PM.PROC2 ---
Procedure Note - Detailed Date of Procedure 09/04/24 Pre-op Diagnosis Right hydronephrosis Post-op Diagnosis Other (Stricture of right ureteral pelvic junction) Procedure Performed Cystoscopy, right retrograde pyelography, right ureteral dilatation, right ureteral biopsy, right ureteral stent placement Surgeon Kenyon Ni MD Anesthesia General Findings 1-2 cm area of stricture at the right ureteropelvic junction Description of Procedure Patient is brought to the operative suite where she was prepped and draped in routine sterile fashion while in dorsal lithotomy position after the uneventful induction of a general LMA anesthetic. Cystoscopy was undertaken with a 19 F rigid cystoscope. Urine from the bladder was collected for cytology. The bladder mucosa is normal without hyperemia. There is no intravesical foreign body or shakira neoplasm. She has a single orthotopic ureteral orifice bilaterally. A 0.035 in glidewire advanced into her right renal pelvis and urine was collected from the right renal pelvis for cytology. I then performed retrograde pyelogram which shows an area of narrowing approximately 1-2 cm at the right proximal ureter/UPJ. I dilated the ureter with an 8 F 10 F dilator did ureteroscopy with a 7.5 F digital ureteral scope. This area of narrowing in the UPJ has classic finding of ureteral stricture without shakira neoplasm. I did obtain a couple biopsies with a Parana forceps. The collecting system was carefully inspected and found to be without findings of urothelial malignancy. Remainder the ureter was endoscopically normal. I dilated this strictured area with a 10 cm balloon at 12 atmospheres for 4 minutes and placed a 6 F variable length stent with the proximal coil in the renal pelvis and distal coil in the bladder. Scopes and wires removed she was taken to the recovery room in good condition. Drains No Packing No Pathology None sent Complications No immediate complications Condition Stable Disposition PACU
[2024-09-04] MEDS: oxyCODONE HCL (*CRX) 5 MG TAB IR PO (15:52)
== END 2024-09-04 16:40 | disposition home or self-care (01) ==
PROVIDERS: PCP Family Medicine; Visit Provider Urology
PROC: (CPT 52352; principal; 2024-09-04 14:00)
DX: N13.5 Crossing vessel and stricture of ureter without hydronephrosis (principal); I12.9 Hypertensive chronic kidney disease with stage 1 through stage 4 chronic kidney disease, or unspecified chronic kidney disease; N18.32 Chronic kidney disease, stage 3b; D64.9 Anemia, unspecified; E03.9 Hypothyroidism, unspecified; K58.2 Mixed irritable bowel syndrome; J31.0 Chronic rhinitis; K21.9 Gastro-esophageal reflux disease without esophagitis; E78.2 Mixed hyperlipidemia; R39.198 Other difficulties with micturition; G47.10 Hypersomnia, unspecified; G56.02 Carpal tunnel syndrome, left upper limb; J84.9 Interstitial pulmonary disease, unspecified; I70.1 Atherosclerosis of renal artery; R41.82 Altered mental status, unspecified; G89.29 Other chronic pain; M25.561 Pain in right knee; M25.551 Pain in right hip; M54.41 Lumbago with sciatica, right side; E66.01 Morbid (severe) obesity due to excess calories; Z68.38 Body mass index [BMI] 38.0-38.9, adult; Z79.51 Long term (current) use of inhaled steroids; Z98.890 Other specified postprocedural states; Z87.442 Personal history of urinary calculi; Z86.0100 Personal history of colon polyps, unspecified; Z87.19 Personal history of other diseases of the digestive system; Z86.79 Personal history of other diseases of the circulatory system
CPT/HCPCS: 52354; 52332; 74420; 87086; 88108; 88305; A9270; C1726; C1758; C1769; C2617; J0690; J2003; J2405; J2704; J3010; J7120; Q9966

== ENCOUNTER 2025-01-15 12:02 | Outpatient (CLI) | payer MEDICARE, SELFPAY ==
--- NOTE | ~2025-01-15 | NM_ITS ---
EXAMINATION: DAVID davalos renal scan DATE: 01/15/2025 13:29 INDICATION: Hydronephrosis TECHNIQUE: 8.3 mCi Tc-99m MAG3 was administered IV. 40 mg furosemide was administered IV immediately afterward. The patient was scanned in the supine position. A posterior abdominal radionuclide angiogram was obtained. A subsequent time course of static images of the kidneys, ureters, and bladder was obtained. COMPARISON: None FINDINGS: The posterior abdominal radionuclide angiogram and sequential static images show normal size and position of the kidneys. There are photopenic defects at the bilateral renal saira which filling with activity on the delayed imaging consistent with hydronephrosis. Peak renal parenchymal uptake was 11.5 min in left kidney and 16.5 min in right kidney (normal peak 3-5 minutes). The relative early renal uptake was 48% on the left and 52% on the right (<40% is abnormal). No abnormalities of the ureters or bladder are seen. T1/2 for clearance of activity from the left kidney and proximal collecting system was 7 minutes. T1/2 for clearance of activity from the right kidney and proximal collecting system was indeterminate with essentially plateau of activity in the 14 minutes of imaging following the peak. Notes on interpretation: T1/2 <10 minutes is normal, 10-15 minutes is low grade obstruction of questionable clinical significance, 15-20 minutes is partial obstruction that is likely clinically significant, >20 minutes is high grade obstruction. Note that false positives may be seen with supine positioning, dehydration, severely dilated nonobstructed kidney, atonic collecting system, poor renal function, and chronic furosemide use. IMPRESSION: 1. Symmetric kidney function. 2. Again seen is markedly delayed activity clearance from the right renal collecting system which could be due to a high-grade obstruction. This could also be seen with a severely dilated or atonic collecting system as is seen on the prior imaging or combination of obstruction and dilated collecting system. The relatively preserved right renal function despite the chronic hydronephrosis seen dating back to 07/25/2021 argues against high-grade obstruction. 3. No delayed activity clearance from the left kidney. Reviewed, dictated and finalized at location A. IMPRESSION: 1. Symmetric kidney function. 2. Again seen is markedly delayed activity clearance from the right renal vinod ecting system which could be due to a high-grade obstruction. This could also b e seen with a severely dilated or atonic collecting system as is seen on the pr ior imaging or combination of obstruction and dilated collecting system. The re latively preserved right renal function despite the chronic hydronephrosis seen dating back to 07/25/2021 argues against high-grade obstruction. 3. No delayed activity clearance from the left kidney.
--- OUTSIDE RECORDS SUMMARY | 2025-01-15 12:25 | XMS_ITS | Clinical Summary ---
Author Organization [facility] Address [address] [place] [address] Care Team Providers Care Plastic Injection Mold Maker Name Role Phone Cisco Guzman MD Primary Care Provider [phone] Source Comments [facility],non-owned Affiliates and Associated Physician Practices is amultiple site organization consisting of ambulatory clinics and hospital sitesin [place], [place], [place] and [place]. This disclosure is being madepursuant to the Care Everywhere program and may not contain all information available regarding this patient. 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 Gender Identity Not on file Sexual Orientation [...] 1:54 PM CDT Height 157.5 cm (5' 2) 09/09/2012 1:54 PM CDT Body Mass Index [...] - T d or Tdap) 01/28/2022 01/29/2012 DEPRESSION SCREENING 05/14/2024 COVID-19 VACCINE (1 - 2023-2 5 season) 2025 INFLUENZA VACCINE (#1) 2025 BONE DENSITY TESTING Addressed 05/14/2011 Overrid [...] patient's age to complete this topic Insurance [facility] SELF PAY NO INSURANCE Member Subscriber Plan / Payer (Ef fective for All Dates) Name:Chica Cooper Member ID:Not on file Relation to Subscriber:Not on file Name:CHICA COOPER Subscriber ID:Not on file (Home) Address: [address] [address] Payer ID:Not on file Group ID:Not on file Type:Self Pay Address: [place], [place] MEDICARE Care Teams Plastic Injection Mold Maker Relationship Specialty Start Date End Date Cisco Guzman MD [address] [facility] [address] [address] PCP - General 09/05/21
== END 2025-01-15 12:03 | disposition home or self-care (01) ==
PROVIDERS: PCP Family Medicine; Visit Provider Urology
DX: R94.4 Abnormal results of kidney function studies (principal); N13.30 Unspecified hydronephrosis
CPT/HCPCS: 78708; A9562

== ENCOUNTER → 2025-03-03 14:49 | Outpatient (CLI) | payer MEDICARE, SELFPAY ==
--- NOTE | ~2025-03-03 | XR_ITS ---
XR knee RT min 4V 03/03/2025 15:46 Indication: Right knee pain Procedure: 4 views right knee Comparison: No prior studies for comparison. Findings: Severe tricompartment osteoarthritis of the right knee. No fracture or traumatic malalignment. No significant joint effusion. No foreign bodies. Impression: 1: Severe tricompartment osteoarthritis of the right knee. Reviewed, dictated and finalized at location O. Impression: 1: Severe tricompartment osteoarthritis of the right knee.
--- OUTSIDE RECORDS SUMMARY | 2025-03-03 18:44 | XMS_ITS | Clinical Summary ---
Author Organization [facility] Address [address] [place] [address] Care Team Providers Care Design Engineering Technician Name Role Phone Cisco Guzman MD Primary Care Provider [phone] Source Comments [facility],non-owned Affiliates and Associated Physician Practices is amultiple site organization consisting of ambulatory clinics and hospital sitesin [place], [place], [place] and [place]. This disclosure is being madepursuant to the Care Everywhere program and may not contain all information available regarding this patient. 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 Gender Identity Not on file Sexual Orientation [...] patient's age to complete this topic Insurance [facility] SELF PAY NO INSURANCE Member Subscriber Plan / Payer (Ef fective for All Dates) Name:Chica Cooper Member ID:Not on file Relation to Subscriber:Not on file Name:CHICA COOPER Subscriber ID:Not on file (Home) Address: [address] [address] Payer ID:Not on file Group ID:Not on file Type:Self Pay Address: [place], [place] MEDICARE Care Teams Design Engineering Technician Relationship Specialty Start Date End Date Cisco Guzman MD [address] [address] [address] PCP - General 09/05/21
== END ==
LOC: EXPTRAD 14:50
PROVIDERS: PCP Family Medicine; Visit Provider Family Medicine
DX: M17.11 Unilateral primary osteoarthritis, right knee (principal)
CPT/HCPCS: 73564